=== PATIENT | male | born 1965 | race Caucasian/White ===

== ENCOUNTER 2020-09-27 12:03 | Inpatient (IN) | payer MEDICAID, OTHER ==
[~2020-09-27] VITALS: Ht 182.9 cm; Wt 127.5 kg
[2020-09-27 13:35] LABS: Urine Bacteria NONE SEEN /hpf (None Seen); Urine Blood 2+ /uL (Negative); Urine Specific Gravity 1.018 (1.001-1.035); Urine WBC 5 /hpf (0 - 3)
[2020-09-27 15:15] LABS: Basophils # (auto) 0.1 10 ^3/uL (0-0.2); Basophils % (auto) 1.1 % (0.0-2.0); Eosinophils # (auto) 0.2 10 ^3/uL (0-0.8); Eosinophils % (auto) 3.1 % (0.0-7.0); Hemoglobin 14.6 g/dL (13.5-17.5); Lymphocytes # (auto) 1.6 10 ^3/uL (0.4-5.4); Mean Corpuscular Hemoglobin 30.5 pg (28.0-32.0); Mean Corpuscular Hgb Conc. 36.6 g/dL (32.0-36.0); Mean Corpuscular Volume 83.4 fL (80.0-100.0); Monocytes # (auto) 0.8 10 ^3/uL (0-1.3); Monocytes % (auto) 10.5 % (0.0-12.0); Neutrophils # (auto) 4.9 10 ^3/uL (1.6-8.6); Neutrophils % (auto) 64.3 % (37.0-80.0); Nucleated Red Blood Cells % 0.1 %; Platelet Count (auto) 172 10^3/uL (140-450); Red Cell Distribution Width 14.6 % (11.8-14.3); White Blood Cell 7.5 10^3/uL (4.4-10.8)
[2020-09-27 15:28] LABS: Albumin 3.6 g/dL (3.4-5.0); BUN/Creatinine Ratio 12.1; Calcium 8.8 mg/dL (8.5-10.1); Magnesium 1.8 mg/dL (1.6-2.6); Potassium 4.2 mmol/L (3.5-5.1)
[2020-09-27 15:32] LABS: Bilirubin, Total 0.8 mg/dL (0.2-1.0); Total Protein 7.1 g/dL (6.4-8.2)
[2020-09-27] MEDS ORDERED: ONDANSETRON HCL 4 MG/2 ML VIAL IV ONE (16:45)
[2020-09-27] MEDS ORDERED: MORPHINE SULFATE 4 MG/ML SYR/VIAL IV ONE (16:45)
[2020-09-27] MEDS ORDERED: SODIUM CHLORIDE 0.9% 1,000 ML IV ONE (16:45)
[2020-09-27 17:05] LABS: INR 1.07 (0.9-1.15); Partial Thromboplastin Time 26.9 sec (23.0-31.2)
[2020-09-27] MEDS ORDERED: ALOG1TAB2 PO (17:23)
[2020-09-27] MEDS ORDERED: HYDR-4902 PO (17:23)
[2020-09-27] MEDS ORDERED: OMEP20TA PO (17:23)
[2020-09-27] MEDS ORDERED: CARV12.544 PO (17:23)
[2020-09-27] MEDS ORDERED: ATOR10TA PO (17:23)
[2020-09-27] MEDS ORDERED: DEXTROSE (50%) 50ML SYRG IV PRN (18:00)
[2020-09-27] MEDS ORDERED: ACETAMINOPHEN 325 MG TAB PO PRN (18:00)
[2020-09-27] MEDS ORDERED: ONDANSETRON HCL 4 MG/2 ML VIAL IV PRN (18:00)
[2020-09-27] MEDS ORDERED: HYDROcodone-ACET 5/325MG TAB PO PRN (18:00)
[2020-09-27] MEDS ORDERED: NITROGLYCERIN 0.4 MG SL TAB SL PRN (18:00)
[2020-09-27] MEDS ORDERED: MORPHINE SULF INJ 2 MG/ML SYRINGE 1ML IV PRN ×2 (18:00)
[2020-09-27] MEDS ORDERED: cefTRIAXone 1GM/50ML D5W 50 ML IV ONE (18:15)
[2020-09-27] MEDS: SOD CHL 0.45% 1,000 ML IV SCH (20:54)
[2020-09-27] MEDS: CARVEDILOL 12.5 MG TAB PO SCH (21:24)
[2020-09-27] MEDS: InsuLIN REG 1unit/0.01ml Soln (100units/ml) SC SCH (21:24)
[2020-09-27] MEDS: ATORVASTATIN 20 MG TAB PO SCH (21:24)
[2020-09-27] MEDS: ACCU-CHEK COMFORT CURVE STRIP VI SCH (21:24)
[2020-09-27 22:00] VITALS: BP 156/82
[2020-09-28 05:00] VITALS: BP 148/91
[2020-09-28] MEDS: SOD CHL 0.45% 1,000 ML IV SCH ×3 (05:15→21:41)
[2020-09-28 05:40] LABS: Basophils # (auto) 0.1 10 ^3/uL (0-0.2); Eosinophils # (auto) 0.2 10 ^3/uL (0-0.8); Hemoglobin 13.6 g/dL (13.5-17.5); Monocytes # (auto) 0.8 10 ^3/uL (0-1.3); Red Cell Distribution Width 14.6 % (11.8-14.3)
[2020-09-28 05:42] LABS: Eosinophils % (auto) 3.5 % (0.0-7.0); Lymphocytes # (auto) 1.8 10 ^3/uL (0.4-5.4); Lymphocytes % (auto) 25.9 % (10.0-50.0); Mean Corpuscular Hemoglobin 30.2 pg (28.0-32.0); Mean Corpuscular Hgb Conc. 36.8 g/dL (32.0-36.0); Monocytes % (auto) 12.1 % (0.0-12.0); Neutrophils % (auto) 57.5 % (37.0-80.0); Nucleated Red Blood Cells % 0.3 %; Platelet Count (auto) 153 10^3/uL (140-450); Red Blood Cells 4.51 10^6/uL (4.5-5.90)
[2020-09-28 06:07] LABS: Calcium 8.2 mg/dL (8.5-10.1); Magnesium 1.8 mg/dL (1.6-2.6); Potassium 3.8 mmol/L (3.5-5.1)
[2020-09-28 06:09] LABS: BUN/Creatinine Ratio 15.3
[2020-09-28] MEDS: ACCU-CHEK COMFORT CURVE STRIP VI SCH ×4 (06:22→21:42)
[2020-09-28] MEDS: InsuLIN REG 1unit/0.01ml Soln (100units/ml) SC SCH ×4 (06:23→22:03)
[2020-09-28 08:39] VITALS: BP 126/72
[2020-09-28] MEDS: cefTRIAXone 1GM/50ML D5W 50 ML IV SCH (10:00)
[2020-09-28] MEDS: PANTOPRAZOLE 40 MG TAB PO SCH (10:00)
[2020-09-28] MEDS: CARVEDILOL 12.5 MG TAB PO SCH ×2 (10:00→21:41)
[2020-09-28 13:00] VITALS: BP 151/87
[2020-09-28] MEDS ORDERED: ceFAZolin 1GM/50ML 100 ML IV ONE (13:01)
[2020-09-28] MEDS ORDERED: fentaNYL CITRATE 100 MCG/2 ML VL ONE (13:35)
[2020-09-28] MEDS ORDERED: MIDAZOLAM HCL 1MG/1ML-2 ML VIAL ONE (13:35)
[2020-09-28] MEDS ORDERED: LIDOCAINE 2% (LOCAL ANESTH.) PF 5ml SDV ONE (13:35)
[2020-09-28] MEDS ORDERED: MEPERIDINE HCL (50 MG/ML) 1 ML VIAL ONE (13:35)
[2020-09-28] MEDS ORDERED: ONDANSETRON HCL 4 MG/2 ML VIAL ONE (13:35)
[2020-09-28] MEDS ORDERED: GLYCOPYRROLATE 0.2 MG/ML 1ML VIAL ONE (13:35)
[2020-09-28] MEDS ORDERED: DexAMETHasone SOD PHOS 10MG/1ML VIAL INJ ONE (13:35)
[2020-09-28] MEDS ORDERED: PROPOFOL 10 MG/ML 20 ML IV ONE (13:35)
[2020-09-28] MEDS ORDERED: IOHEXOL 300 MG/ML 100ML BOTTLE IJ ONE (13:43)
[2020-09-28] MEDS ORDERED: ROCURONIUM 10MG/ML 10ML VIAL IV ONE (13:51)
[2020-09-28] MEDS ORDERED: ONDANSETRON HCL 4 MG/2 ML VIAL IV PRN (16:00)
[2020-09-28] MEDS ORDERED: ACCU-CHEK COMFORT CURVE STRIP VI ONE (16:00)
[2020-09-28] MEDS ORDERED: HYDROmorphone HCL 2 MG/ML VL IV PRN (16:00)
[2020-09-28 17:08] VITALS: BP 153/105
[2020-09-28 20:00] VITALS: BP 167/88
[2020-09-28] MEDS: ATORVASTATIN 20 MG TAB PO SCH (21:41)
[2020-09-28 23:19] VITALS: BP 167/88
[2020-09-29 05:52] VITALS: BP 142/81
[2020-09-29] MEDS: ACCU-CHEK COMFORT CURVE STRIP VI SCH ×2 (06:14→11:30)
[2020-09-29] MEDS: SOD CHL 0.45% 1,000 ML IV SCH ×2 (06:14→11:12)
[2020-09-29] MEDS: InsuLIN REG 1unit/0.01ml Soln (100units/ml) SC SCH ×2 (06:23→12:01)
[2020-09-29 08:48] VITALS: BP 144/79
[2020-09-29] MEDS: PANTOPRAZOLE 40 MG TAB PO SCH (09:54)
[2020-09-29] MEDS: CARVEDILOL 12.5 MG TAB PO SCH (09:54)
[2020-09-29] MEDS: cefTRIAXone 1GM/50ML D5W 50 ML IV SCH (09:54)
[2020-09-29 11:41] LABS: BUN/Creatinine Ratio 14.1; Potassium 4.2 mmol/L (3.5-5.1)
[2020-09-29 12:31] VITALS: BP 140/83
[2020-09-29 15:47] VITALS: BP 132/80
== END 2020-09-29 14:20 | disposition home or self-care (01) | DRG 465 ==
LOC: ER 12:03 → TELE 17:56 → TELE-CENTR 20:32
PROVIDERS: ADMIT Internal Medicine; ATTEND Internal Medicine
PROC: 0TJB8ZZ Inspection of Bladder, Via Natural or Artificial Opening Endoscopic (ICD-10-PCS; principal; 2020-09-28 13:51)
PROC: 0TF4XZZ Fragmentation in Left Kidney Pelvis, External Approach (ICD-10-PCS; 2020-09-28 13:51)
DX: N20.2 Calculus of kidney with calculus of ureter (principal); E11.22 Type 2 diabetes mellitus with diabetic chronic kidney disease; N17.9 Acute kidney failure, unspecified; N18.30 Chronic kidney disease, stage 3 unspecified; E11.65 Type 2 diabetes mellitus with hyperglycemia; I12.9 Hypertensive chronic kidney disease with stage 1 through stage 4 chronic kidney disease, or unspecified chronic kidney disease; Z20.822 Contact with and (suspected) exposure to COVID-19; E66.9 Obesity, unspecified; E78.5 Hyperlipidemia, unspecified; Z85.528 Personal history of other malignant neoplasm of kidney; Z87.442 Personal history of urinary calculi; Z87.891 Personal history of nicotine dependence; Z90.5 Acquired absence of kidney; Z79.84 Long term (current) use of oral hypoglycemic drugs; Z79.899 Other long term (current) drug therapy; Z68.37 Body mass index [BMI] 37.0-37.9, adult
CPT/HCPCS: 36415; 71046; 74176; 76775; 80048; 80053; 81001; 82962; 83735; 84443; 84484; 85025; 85610; 85730; 87426; 93005; 96361; 96365; G0378; J0690; J0696; J1100; J1815; J2001; J2250; J2405; J2704

== ENCOUNTER 2020-10-31 18:06 | Emergency (ER) | payer MEDICAID ==
[~2020-10-31] VITALS: Ht 172.7 cm; Wt 117.9 kg
[~2020-10-31 18:06] MED LIST: ALOG1TAB2 PO; ATOR10TA PO; CARV12.544 PO; HYDR-4902 PO; OMEP20TA PO
[2020-10-31 19:24] LABS: Basophils # (auto) 0.1 10 ^3/uL (0-0.2); Basophils % (auto) 0.9 % (0.0-2.0); Eosinophils # (auto) 0.3 10 ^3/uL (0-0.8); Eosinophils % (auto) 2.5 % (0.0-7.0); Hematocrit 39.1 % (41.0-53.0); Hemoglobin 13.8 g/dL (13.5-17.5); Lymphocytes % (auto) 19.2 % (10.0-50.0); Mean Corpuscular Hemoglobin 29.6 pg (28.0-32.0); Mean Corpuscular Hgb Conc. 35.4 g/dL (32.0-36.0); Mean Corpuscular Volume 83.7 fL (80.0-100.0); Monocytes % (auto) 9.6 % (0.0-12.0); Neutrophils # (auto) 7.1 10 ^3/uL (1.6-8.6); Neutrophils % (auto) 67.8 % (37.0-80.0); Red Blood Cells 4.67 10^6/uL (4.5-5.90); Red Cell Distribution Width 13.9 % (11.8-14.3); White Blood Cell 10.5 10^3/uL (4.4-10.8)
[2020-10-31 19:55] LABS: Albumin 3.5 g/dL (3.4-5.0); Calcium 8.6 mg/dL (8.5-10.1); Magnesium 1.9 mg/dL (1.6-2.6); Potassium 3.9 mmol/L (3.5-5.1)
[2020-10-31 20:03] LABS: BUN/Creatinine Ratio 8.8; Bilirubin, Total 0.8 mg/dL (0.2-1.0)
[2020-10-31 22:00] VITALS: BP 175/94
== END 2020-10-31 23:43 | disposition home or self-care (01) ==
LOC: ER 18:07
DX: R07.89 Other chest pain (principal); E11.9 Type 2 diabetes mellitus without complications; I10 Essential (primary) hypertension
CPT/HCPCS: 36415; 71045; 80053; 83735; 84484; 85025; 93005

== ENCOUNTER → 2021-03-13 | Emergency (ER) | payer MEDICAID ==
[~2021-03-13] VITALS: Ht 172.7 cm; Wt 117.9 kg
[2021-03-13 08:50] VITALS: BP 174/95
== END | disposition left against medical advice (07) ==
LOC: ER 08:28
DX: M54.2 Cervicalgia (principal); Z53.21 Procedure and treatment not carried out due to patient leaving prior to being seen by health care provider
CPT/HCPCS: 72040

== ENCOUNTER 2021-11-01 06:31 | Emergency (ER) | payer MEDICAID ==
[~2021-11-01] VITALS: Ht 172.7 cm; Wt 120.2 kg
[2021-11-01 06:31] VITALS: BP 125/95
[2021-11-01] MEDS ORDERED: IPRATROPIUM BROM 0.5 MG/2.5ML INH SOL NEB ONE (07:30)
[2021-11-01] MEDS ORDERED: ALBUTEROL SULF 2.5 MG/0.5ML(0.5%) NEB SOLN NEB ONE (07:30)
[2021-11-01] MEDS ORDERED: LEVO500T31 PO (08:25)
[2021-11-01] MEDS ORDERED: BENZ100C19 PO (08:25)
== END 2021-11-01 08:32 | disposition home or self-care (01) ==
LOC: ER 06:31
DX: J20.9 Acute bronchitis, unspecified (principal); E11.9 Type 2 diabetes mellitus without complications; I10 Essential (primary) hypertension
CPT/HCPCS: 71046; 94640; 99283; J7644

== ENCOUNTER 2021-11-13 21:08 | Emergency (ER) | payer MEDICAID ==
[~2021-11-13] VITALS: Ht 172.7 cm; Wt 118.2 kg
[~2021-11-13 21:08] MED LIST changes: +BENZ100C19 PO; +LEVO500T31 PO
[2021-11-13 22:28] LABS: Basophils # (auto) 0.1 10 ^3/uL (0-0.2); Basophils % (auto) 1.1 % (0.0-2.0); Eosinophils # (auto) 0.2 10 ^3/uL (0-0.8); Eosinophils % (auto) 2.9 % (0.0-7.0); Hematocrit 42.4 % (41.0-53.0); Hemoglobin 14.5 g/dL (13.5-17.5); Lymphocytes # (auto) 1.1 10 ^3/uL (0.4-5.4); Lymphocytes % (auto) 17.7 % (10.0-50.0); Mean Corpuscular Hemoglobin 28.2 pg (28.0-32.0); Mean Corpuscular Hgb Conc. 34.1 g/dL (32.0-36.0); Mean Corpuscular Volume 82.7 fL (80.0-100.0); Neutrophils # (auto) 3.8 10 ^3/uL (1.6-8.6); Neutrophils % (auto) 62.3 % (37.0-80.0); Nucleated Red Blood Cells % 0.1 %; Red Blood Cells 5.13 10^6/uL (4.5-5.90); Red Cell Distribution Width 14.3 % (11.8-14.3)
[2021-11-13 22:49] LABS: Albumin 3.5 g/dL (3.4-5.0); Calcium 8.9 mg/dL (8.5-10.1); Potassium 3.5 mmol/L (3.5-5.1)
[2021-11-13 22:51] LABS: BUN/Creatinine Ratio 12.4
[2021-11-13 23:02] LABS: Bilirubin, Total 0.8 mg/dL (0.2-1.0); Total Protein 7.1 g/dL (6.4-8.2)
[2021-11-14] MEDS ORDERED: AZIT250T9 PO (03:48)
[2021-11-14] MEDS ORDERED: PRED20TA2 PO (03:48)
[2021-11-14] MEDS ORDERED: ALBUAER3 IN (03:48)
[2021-11-14 04:10] VITALS: BP 145/79
== END 2021-11-14 04:15 | disposition home or self-care (01) ==
LOC: ER 21:08
DX: J20.9 Acute bronchitis, unspecified (principal); J42 Unspecified chronic bronchitis; I10 Essential (primary) hypertension; E11.9 Type 2 diabetes mellitus without complications; Z79.899 Other long term (current) drug therapy; Z79.2 Long term (current) use of antibiotics; Z20.822 Contact with and (suspected) exposure to COVID-19
CPT/HCPCS: 36415; 71045; 80053; 83880; 84484; 85025

== ENCOUNTER 2021-12-01 09:58 | Inpatient (IN) | payer MEDICAID ==
[~2021-12-01] VITALS: Ht 172.7 cm; Wt 131.5 kg
[~2021-12-01 09:58] MED LIST changes: +ALBUAER3 IN; +AZIT250T9 PO; +PRED20TA2 PO
[2021-12-01 11:50] LABS: Basophils # (auto) 0.1 10 ^3/uL (0-0.2); Basophils % (auto) 0.7 % (0.0-2.0); Eosinophils # (auto) 0.1 10 ^3/uL (0-0.8); Hematocrit 46.1 % (41.0-53.0); Hemoglobin 15.2 g/dL (13.5-17.5); Lymphocytes # (auto) 0.6 10 ^3/uL (0.4-5.4); Lymphocytes % (auto) 7.3 % (10.0-50.0); Mean Corpuscular Hemoglobin 27.7 pg (28.0-32.0); Monocytes # (auto) 0.6 10 ^3/uL (0-1.3); Monocytes % (auto) 8.4 % (0.0-12.0); Neutrophils # (auto) 6.3 10 ^3/uL (1.6-8.6); Neutrophils % (auto) 82.6 % (37.0-80.0); Nucleated Red Blood Cells % 0.1 %; Red Blood Cells 5.49 10^6/uL (4.5-5.90); Red Cell Distribution Width 14.1 % (11.8-14.3); White Blood Cell 7.7 10^3/uL (4.4-10.8)
[2021-12-01] MEDS ORDERED: LACTATED RINGER'S 1,000 ML IV ONE (12:00)
[2021-12-01 12:06] LABS: Partial Thromboplastin Time 26.5 sec (24.6-33.4)
[2021-12-01 12:11] LABS: Albumin 3.4 g/dL (3.4-5.0); Calcium 8.6 mg/dL (8.5-10.1); Potassium 4.2 mmol/L (3.5-5.1)
[2021-12-01 12:15] LABS: BUN/Creatinine Ratio 5.7; Bilirubin, Total 5.3 mg/dL (0.2-1.0); Total Protein 6.8 g/dL (6.4-8.2)
[2021-12-01] MEDS ORDERED: FAMOTIDINE (10MG/ML) 2ML VL IV ONE (12:15)
[2021-12-01] MEDS ORDERED: OMNIPAQUE ORAL SOLN 500ml 12mg/ml PO ONE (12:55)
[2021-12-01] MEDS ORDERED: ONDANSETRON HCL 4 MG/2 ML VIAL IV SCH (14:00)
[2021-12-01] MEDS ORDERED: MORPHINE SULFATE 4 MG/ML SYR/VIAL IV SCH (14:00)
[2021-12-01] MEDS: ONDANSETRON HCL 4 MG/2 ML VIAL IV PRN ×2 (19:22→22:55)
[2021-12-01] MEDS: MORPHINE SULFATE 4 MG/ML SYR/VIAL IV PRN ×2 (19:23→22:55)
[2021-12-01] MEDS ORDERED: TEMAZEPAM 15 MG CAP PO PRN (22:45)
[2021-12-01] MEDS ORDERED: ONDANSETRON HCL 4 MG/2 ML VIAL IV PRN (22:45)
[2021-12-01] MEDS ORDERED: DOCUSATE SOD 100 MG CAP PO PRN (22:45)
[2021-12-01] MEDS ORDERED: DEXTROSE (50%) 50ML SYRG IV PRN (22:45)
[2021-12-01] MEDS ORDERED: IBUPROFEN 600 MG TAB PO PRN (22:45)
[2021-12-01] MEDS ORDERED: NITROGLYCERIN 0.4 MG SL TAB SL PRN (22:45)
[2021-12-01] MEDS ORDERED: MORPHINE SULFATE INJ 2 MG/ml SYRG IV PRN (22:45)
[2021-12-01] MEDS: SODIUM CHLORIDE 0.9% 1,000 ML IV SCH (23:13)
[2021-12-01] MEDS: hydrALAZINE HCL 20 MG/ML VL IV PRN (23:13)
[2021-12-02] MEDS: ACCU-CHEK COMFORT CURVE STRIP VI SCH ×5 (01:50→23:23)
[2021-12-02] MEDS: InsuLIN REG 1unit/0.01ml Soln (100units/ml) SC SCH ×5 (01:58→23:23)
[2021-12-02] MEDS: hydrALAZINE HCL 20 MG/ML VL IV PRN ×2 (04:26→21:34)
[2021-12-02 06:39] LABS: Basophils # (auto) 0 10 ^3/uL (0-0.2); Basophils % (auto) 0.4 % (0.0-2.0); Eosinophils # (auto) 0.1 10 ^3/uL (0-0.8); Eosinophils % (auto) 0.8 % (0.0-7.0); Hematocrit 43.3 % (41.0-53.0); Hemoglobin 15.2 g/dL (13.5-17.5); Lymphocytes # (auto) 0.5 10 ^3/uL (0.4-5.4); Lymphocytes % (auto) 5.2 % (10.0-50.0); Mean Corpuscular Hemoglobin 29.1 pg (28.0-32.0); Mean Corpuscular Hgb Conc. 35.1 g/dL (32.0-36.0); Mean Corpuscular Volume 83.1 fL (80.0-100.0); Monocytes # (auto) 0.7 10 ^3/uL (0-1.3); Monocytes % (auto) 6.9 % (0.0-12.0); Neutrophils % (auto) 86.7 % (37.0-80.0); Red Blood Cells 5.21 10^6/uL (4.5-5.90); Red Cell Distribution Width 14.2 % (11.8-14.3); White Blood Cell 10.4 10^3/uL (4.4-10.8)
[2021-12-02 06:51] LABS: Albumin 3.1 g/dL (3.4-5.0); Calcium 8.6 mg/dL (8.5-10.1); Potassium 3.9 mmol/L (3.5-5.1)
[2021-12-02 07:02] LABS: BUN/Creatinine Ratio 9.1; Bilirubin, Total 4.6 mg/dL (0.2-1.0); Total Protein 6.4 g/dL (6.4-8.2)
[2021-12-02] MEDS: SODIUM CHLORIDE 0.9% 1,000 ML IV SCH ×2 (10:14→20:45)
[2021-12-02] MEDS: FAMOTIDINE (10MG/ML) 2ML VL IV SCH ×2 (10:19→21:33)
[2021-12-02] MEDS: CARVEDILOL 12.5 MG TAB PO SCH ×2 (10:21→21:33)
[2021-12-02] MEDS: amLODIPine BESYLATE 5 MG TAB PO SCH (10:26)
[2021-12-02] MEDS: ENOXAPARIN SOD 40 MG/0.4 ML SYRINGE SC SCH (10:27)
[2021-12-02] MEDS ORDERED: SODIUM CHLORIDE 0.9% 1,000 ML IV SCH (12:30)
[2021-12-02] MEDS ORDERED: LACTATED RINGER'S 1,000 ML IV SCH (12:30)
[2021-12-02] MEDS: MORPHINE SULFATE INJ 2 MG/ml SYRG IV PRN ×2 (12:43→21:35)
[2021-12-02 13:00] VITALS: BP 161/87
[2021-12-02 16:49] VITALS: BP 154/85
[2021-12-02 21:52] VITALS: BP 160/108
[2021-12-03] MEDS: SODIUM CHLORIDE 0.9% 1,000 ML IV SCH ×3 (03:15→20:00)
[2021-12-03 04:54] VITALS: BP 116/79
[2021-12-03 05:44] LABS: Basophils # (auto) 0 10 ^3/uL (0-0.2); Basophils % (auto) 0.3 % (0.0-2.0); Eosinophils # (auto) 0.1 10 ^3/uL (0-0.8); Eosinophils % (auto) 0.7 % (0.0-7.0); Hematocrit 39.9 % (41.0-53.0); Hemoglobin 13.7 g/dL (13.5-17.5); Lymphocytes # (auto) 0.8 10 ^3/uL (0.4-5.4); Lymphocytes % (auto) 7.4 % (10.0-50.0); Mean Corpuscular Hemoglobin 28.8 pg (28.0-32.0); Mean Corpuscular Hgb Conc. 34.4 g/dL (32.0-36.0); Mean Corpuscular Volume 83.7 fL (80.0-100.0); Monocytes # (auto) 1.1 10 ^3/uL (0-1.3); Monocytes % (auto) 10.4 % (0.0-12.0); Neutrophils # (auto) 8.3 10 ^3/uL (1.6-8.6); Neutrophils % (auto) 81.2 % (37.0-80.0); Red Blood Cells 4.76 10^6/uL (4.5-5.90); Red Cell Distribution Width 14.3 % (11.8-14.3); White Blood Cell 10.2 10^3/uL (4.4-10.8)
[2021-12-03 05:50] LABS: Potassium 3.9 mmol/L (3.5-5.1)
[2021-12-03 05:59] LABS: Albumin 2.8 g/dL (3.4-5.0); Bilirubin, Total 2.5 mg/dL (0.2-1.0); Calcium 8.4 mg/dL (8.5-10.1); Total Protein 6.2 g/dL (6.4-8.2)
[2021-12-03] MEDS: ACCU-CHEK COMFORT CURVE STRIP VI SCH ×4 (06:00→23:58)
[2021-12-03] MEDS: InsuLIN REG 1unit/0.01ml Soln (100units/ml) SC SCH ×3 (06:41→17:49)
[2021-12-03 09:00] VITALS: BP 128/71
[2021-12-03] MEDS: FAMOTIDINE (10MG/ML) 2ML VL IV SCH ×2 (09:46→21:19)
[2021-12-03] MEDS: ENOXAPARIN SOD 40 MG/0.4 ML SYRINGE SC SCH (09:48)
[2021-12-03] MEDS: MORPHINE SULFATE INJ 2 MG/ml SYRG IV PRN ×3 (09:48→21:29)
[2021-12-03] MEDS: CARVEDILOL 12.5 MG TAB PO SCH ×2 (09:49→21:24)
[2021-12-03] MEDS: amLODIPine BESYLATE 5 MG TAB PO SCH (09:50)
[2021-12-03] MEDS: hydrALAZINE HCL 20 MG/ML VL IV PRN (12:50)
[2021-12-03 13:00] VITALS: BP 169/89
[2021-12-03 17:00] VITALS: BP 156/77
[2021-12-03 22:00] VITALS: BP 129/54
[2021-12-04] MEDS: InsuLIN REG 1unit/0.01ml Soln (100units/ml) SC SCH ×2 (01:04→06:19)
[2021-12-04] MEDS: SODIUM CHLORIDE 0.9% 1,000 ML IV SCH ×2 (03:15→11:07)
[2021-12-04 05:00] VITALS: BP 137/63
[2021-12-04] MEDS: ACCU-CHEK COMFORT CURVE STRIP VI SCH (05:45)
[2021-12-04 05:58] LABS: Albumin 2.6 g/dL (3.4-5.0); Potassium 3.5 mmol/L (3.5-5.1)
[2021-12-04 06:03] LABS: BUN/Creatinine Ratio 11.2; Total Protein 6.1 g/dL (6.4-8.2)
[2021-12-04 09:00] VITALS: BP 105/60
[2021-12-04] MEDS: FAMOTIDINE (10MG/ML) 2ML VL IV SCH (10:58)
[2021-12-04] MEDS: ENOXAPARIN SOD 40 MG/0.4 ML SYRINGE SC SCH (11:01)
[2021-12-04] MEDS: MORPHINE SULFATE INJ 2 MG/ml SYRG IV PRN (11:01)
[2021-12-04] MEDS: amLODIPine BESYLATE 5 MG TAB PO SCH (11:02)
[2021-12-04] MEDS: CARVEDILOL 12.5 MG TAB PO SCH (11:02)
[2021-12-04] MEDS: hydrALAZINE HCL 20 MG/ML VL IV PRN (11:05)
[2021-12-04] MEDS ORDERED: InsuLIN REG 1unit/0.01ml Soln (100units/ml) SC SCH (11:30)
[2021-12-04] MEDS ORDERED: ACCU-CHEK COMFORT CURVE STRIP VI SCH (11:30)
[2021-12-04 13:00] VITALS: BP 126/81
[2021-12-04] MEDS ORDERED: SUCR1SUS10 PO (14:51)
[2021-12-04] MEDS ORDERED: OMEP20TA PO (14:51)
[2021-12-04 15:48] VITALS: BP 126/81
== END 2021-12-04 17:10 | disposition home or self-care (01) | DRG 282 ==
LOC: ER 09:58 → OVERFLOW 22:32 → EAST 12-02 11:05
PROVIDERS: ADMIT Nurse Practitioner Family; ATTEND Hospitalist
DX: K85.10 Biliary acute pancreatitis without necrosis or infection (principal); N17.9 Acute kidney failure, unspecified; E87.1 Hypo-osmolality and hyponatremia; I10 Essential (primary) hypertension; Z20.822 Contact with and (suspected) exposure to COVID-19; E78.5 Hyperlipidemia, unspecified; Z85.528 Personal history of other malignant neoplasm of kidney; Z90.5 Acquired absence of kidney; E11.65 Type 2 diabetes mellitus with hyperglycemia; Z79.84 Long term (current) use of oral hypoglycemic drugs
CPT/HCPCS: 36415; 71045; 74018; 74176; 74181; 80053; 80061; 82962; 83036; 83605; 83690; 83735; 84484; 85025; 85610; 85730; 93005; 96361; 96374; 96375; G0378; J1815; J2405; J3490

== ENCOUNTER 2022-02-27 08:43 | Emergency (ER) | payer MEDICAID ==
[~2022-02-27] VITALS: Ht 172.7 cm; Wt 126.0 kg
[~2022-02-27 08:43] MED LIST changes: -AZIT250T9 PO; -LEVO500T31 PO; -PRED20TA2 PO; +SUCR1SUS10 PO
[2022-02-27] MEDS ORDERED: HYDROcodone-ACET 5/325MG TAB PO ONE (10:15)
[2022-02-27 10:20] VITALS: BP 170/107
[2022-02-27] MEDS ORDERED: CYCL-837 PO (11:07)
[2022-02-27] MEDS ORDERED: IBUP800T27 PO (11:07)
== END 2022-02-27 11:22 | disposition home or self-care (01) ==
LOC: ER 08:43
DX: S46.911A Strain of unspecified muscle, fascia and tendon at shoulder and upper arm level, right arm, initial encounter (principal); E11.9 Type 2 diabetes mellitus without complications; E78.5 Hyperlipidemia, unspecified; I10 Essential (primary) hypertension; W01.0XXA Fall on same level from slipping, tripping and stumbling without subsequent striking against object, initial encounter; Y93.89 Activity, other specified; Y92.89 Other specified places as the place of occurrence of the external cause; Y99.8 Other external cause status
CPT/HCPCS: 73030

== ENCOUNTER 2022-04-30 07:25 | Emergency (ER) | payer MEDICAID ==
[~2022-04-30] VITALS: Ht 172.7 cm; Wt 130.0 kg
[~2022-04-30 07:25] MED LIST changes: +CYCL-837 PO; +IBUP800T27 PO
[2022-04-30 07:49] VITALS: BP 167/92
[2022-04-30] MEDS ORDERED: LORA-664 PO (08:33)
[2022-04-30] MEDS ORDERED: BENZ100C19 PO (08:33)
[2022-04-30] MEDS ORDERED: ACET1CAP14 PO (08:33)
== END 2022-04-30 08:46 | disposition home or self-care (01) ==
LOC: ER 07:25
DX: J06.9 Acute upper respiratory infection, unspecified (principal); B97.89 Other viral agents as the cause of diseases classified elsewhere; E11.9 Type 2 diabetes mellitus without complications; E78.5 Hyperlipidemia, unspecified; I10 Essential (primary) hypertension; Z79.899 Other long term (current) drug therapy; Z20.822 Contact with and (suspected) exposure to COVID-19
CPT/HCPCS: 36415; 71046; 82962; 87426; 87804

== ENCOUNTER 2022-05-15 10:35 | Emergency (ER) | payer MEDICAID ==
[~2022-05-15] VITALS: Ht 172.7 cm; Wt 120.5 kg
[~2022-05-15 10:35] MED LIST changes: +ACET1CAP14 PO; +LORA-664 PO
[2022-05-15 11:11] LABS: Basophils # (auto) 0.1 10 ^3/uL (0-0.2); Basophils % (auto) 1.6 % (0.0-2.0); Eosinophils # (auto) 0.3 10 ^3/uL (0-0.8); Eosinophils % (auto) 4.4 % (0.0-7.0); Hematocrit 42.9 % (41.0-53.0); Hemoglobin 15.2 g/dL (13.5-17.5); Lymphocytes # (auto) 1.6 10 ^3/uL (0.4-5.4); Lymphocytes % (auto) 21.6 % (10.0-50.0); Mean Corpuscular Hgb Conc. 35.3 g/dL (32.0-36.0); Mean Corpuscular Volume 82.1 fL (80.0-100.0); Monocytes # (auto) 0.7 10 ^3/uL (0-1.3); Monocytes % (auto) 10.2 % (0.0-12.0); Neutrophils # (auto) 4.6 10 ^3/uL (1.6-8.6); Neutrophils % (auto) 62.2 % (37.0-80.0); Nucleated Red Blood Cells % 0.8 %; Red Blood Cells 5.23 10^6/uL (4.5-5.90); Red Cell Distribution Width 14.3 % (11.8-14.3); White Blood Cell 7.3 10^3/uL (4.4-10.8)
[2022-05-15 11:31] LABS: Albumin 3.7 g/dL (3.4-5.0); Calcium 8.9 mg/dL (8.5-10.1); Potassium 4.5 mmol/L (3.5-5.1)
[2022-05-15 11:33] LABS: BUN/Creatinine Ratio 12.4
[2022-05-15 11:35] LABS: Bilirubin, Total 0.9 mg/dL (0.2-1.0); Total Protein 6.8 g/dL (6.4-8.2)
[2022-05-15] MEDS ORDERED: AZIT250T9 PO (12:25)
[2022-05-15] MEDS ORDERED: CLON0.1T PO (12:25)
[2022-05-15 13:14] VITALS: BP 160/105
== END 2022-05-15 13:16 | disposition home or self-care (01) ==
LOC: ER 10:35
DX: J20.9 Acute bronchitis, unspecified (principal); E78.5 Hyperlipidemia, unspecified; I10 Essential (primary) hypertension; E11.65 Type 2 diabetes mellitus with hyperglycemia; T46.4X5A Adverse effect of angiotensin-converting-enzyme inhibitors, initial encounter; Y92.89 Other specified places as the place of occurrence of the external cause
CPT/HCPCS: 36415; 71045; 80053; 84484; 85025; 93005

== ENCOUNTER 2022-07-17 08:49 | Emergency (ER) | payer MEDICAID ==
[~2022-07-17] VITALS: Ht 172.7 cm; Wt 131.2 kg
[~2022-07-17 08:49] MED LIST changes: +AZIT250T9 PO; +CLON0.1T PO
[2022-07-17 09:18] VITALS: BP 160/100
[2022-07-17 09:42] LABS: Urine Bacteria FEW /hpf (None Seen); Urine Blood Negative /uL (Negative); Urine Specific Gravity 1.005 (1.001-1.035); Urine WBC <1 /hpf (0 - 3)
[2022-07-17 10:50] LABS: Albumin 3.3 g/dL (3.4-5.0); Calcium 8.9 mg/dL (8.5-10.1); Potassium 4.3 mmol/L (3.5-5.1)
[2022-07-17 10:54] LABS: BUN/Creatinine Ratio 10.5 (10.0-20.0); Bilirubin, Total 0.7 mg/dL (0.2-1.0); Total Protein 6.6 g/dL (6.4-8.2)
[2022-07-17] MEDS ORDERED: TRAM-297 PO ×2 (11:29)
[2022-07-17] MEDS ORDERED: TRIA0.02 TOP ×2 (11:29)
[2022-07-17] MEDS ORDERED: ACYC-166 PO ×2 (11:29)
[2022-07-17 11:47] LABS: Hematocrit 39.1 % (41.0-53.0); Mean Corpuscular Hemoglobin 29.1 pg (28.0-32.0); Mean Corpuscular Hgb Conc. 35.9 g/dL (32.0-36.0); Mean Corpuscular Volume 81.1 fL (80.0-100.0); Red Blood Cells 4.82 10^6/uL (4.5-5.90); Red Cell Distribution Width 14.1 % (11.8-14.3); White Blood Cell 7.2 10^3/uL (4.4-10.8)
[2022-07-17 12:12] LABS: Basophils % (manual) 0 (0.0-2.0); Metamyelocytes % 0; Myelocytes % 0
[2022-07-17 12:13] LABS: Blast Cells 0; Promyelocytes % 0; Reactive Lymphocytes 0
[2022-07-17] MEDS ORDERED: ACET-1080 PO (12:45)
[2022-07-17] MEDS ORDERED: TAM04C PO (12:45)
[2022-07-17 13:43] LABS: Band Neutrophils % (manual) 11; Eosinophils % (manual) 3 (0-7); Lymphocytes % (manual) 33 (10.0-50.0); Monocytes % (manual) 2 (0-12)
== END 2022-07-17 12:50 | disposition home or self-care (01) ==
LOC: ER 08:49
DX: K80.20 Calculus of gallbladder without cholecystitis without obstruction (principal); K76.0 Fatty (change of) liver, not elsewhere classified; N40.0 Benign prostatic hyperplasia without lower urinary tract symptoms; E11.9 Type 2 diabetes mellitus without complications; E78.5 Hyperlipidemia, unspecified; I10 Essential (primary) hypertension
CPT/HCPCS: 36415; 74176; 80053; 81001; 83690; 85007; 85027

== ENCOUNTER 2022-08-11 16:27 | Emergency (ER) | payer MEDICAID ==
[~2022-08-11] VITALS: Ht 172.7 cm; Wt 133.9 kg
[~2022-08-11 16:27] MED LIST changes: +ACET-1080 PO; +TAM04C PO
[2022-08-11 17:10] LABS: Basophils # (auto) 0 10 ^3/uL (0-0.2); Basophils % (auto) 0.6 % (0.0-2.0); Eosinophils # (auto) 0.2 10 ^3/uL (0-0.8); Eosinophils % (auto) 2.5 % (0.0-7.0); Hematocrit 39.8 % (41.0-53.0); Hemoglobin 14.3 g/dL (13.5-17.5); Lymphocytes # (auto) 1.5 10 ^3/uL (0.4-5.4); Lymphocytes % (auto) 21.7 % (10.0-50.0); Mean Corpuscular Hemoglobin 29.8 pg (28.0-32.0); Mean Corpuscular Volume 82.8 fL (80.0-100.0); Monocytes # (auto) 0.9 10 ^3/uL (0-1.3); Monocytes % (auto) 13.3 % (0.0-12.0); Neutrophils # (auto) 4.2 10 ^3/uL (1.6-8.6); Neutrophils % (auto) 61.9 % (37.0-80.0); Nucleated Red Blood Cells % 0.2 %; Red Blood Cells 4.81 10^6/uL (4.5-5.90); Red Cell Distribution Width 14.5 % (11.8-14.3); White Blood Cell 6.7 10^3/uL (4.4-10.8)
[2022-08-11 17:33] LABS: Albumin 3.4 g/dL (3.4-5.0); Calcium 8.8 mg/dL (8.5-10.1); Potassium 4.1 mmol/L (3.5-5.1)
[2022-08-11 17:37] LABS: BUN/Creatinine Ratio 13.7 (10.0-20.0); Bilirubin, Total 0.9 mg/dL (0.2-1.0); Total Protein 6.5 g/dL (6.4-8.2)
[2022-08-11 21:33] VITALS: BP 166/98
== END 2022-08-11 23:19 | disposition home or self-care (01) ==
LOC: ER 16:27
DX: E11.65 Type 2 diabetes mellitus with hyperglycemia (principal); I10 Essential (primary) hypertension; E78.5 Hyperlipidemia, unspecified; R07.89 Other chest pain
CPT/HCPCS: 36415; 71046; 80053; 83880; 84484; 85025; 93005

== ENCOUNTER 2022-08-30 07:29 | Emergency (ER) | payer MEDICAID ==
[~2022-08-30] VITALS: Ht 172.7 cm; Wt 133.0 kg
[2022-08-30 07:48] VITALS: BP 145/79
[2022-08-30] MEDS ORDERED: PROM1SOL4 PO (08:29)
[2022-08-30] MEDS ORDERED: LEVO500T31 PO (08:29)
== END 2022-08-30 08:35 | disposition home or self-care (01) ==
LOC: ER 07:29
DX: J20.9 Acute bronchitis, unspecified (principal); I10 Essential (primary) hypertension; E11.9 Type 2 diabetes mellitus without complications; E78.5 Hyperlipidemia, unspecified; R07.89 Other chest pain
CPT/HCPCS: 71045

== ENCOUNTER 2022-11-28 17:01 | Emergency (ER) | payer MEDICAID ==
[~2022-11-28] VITALS: Ht 172.7 cm; Wt 139.9 kg
[~2022-11-28 17:01] MED LIST changes: +AZIT-43 PO; -AZIT250T9 PO; +IBUP-1456 PO; -IBUP800T27 PO; +LEVO500T31 PO; +LORA-1130 PO; -LORA-664 PO; +PROM1SOL4 PO; -SUCR1SUS10 PO; +SUCR1SUS26 PO; -TAM04C PO; +TAMS-35 PO
[2022-11-28] MEDS ORDERED: BENZ100C97 PO (18:07)
[2022-11-28] MEDS ORDERED: PROM1SOL4 PO (18:07)
[2022-11-28 18:14] VITALS: BP 172/93; PULSE 85; RESP 15; TEMP 97.1; O2SAT 96
== END 2022-11-28 18:14 | disposition home or self-care (01) ==
LOC: ER 17:01
DX: R05.9 Cough, unspecified (principal); E11.9 Type 2 diabetes mellitus without complications; E78.5 Hyperlipidemia, unspecified; I10 Essential (primary) hypertension; E66.01 Morbid (severe) obesity due to excess calories; Z88.6 Allergy status to analgesic agent; Z68.42 Body mass index [BMI] 45.0-49.9, adult
CPT/HCPCS: 71046

== ENCOUNTER 2022-12-16 07:59 | Emergency (ER) | payer MEDICAID ==
[~2022-12-16] VITALS: Ht 172.7 cm; Wt 137.0 kg
[~2022-12-16 07:59] MED LIST changes: +BENZ100C97 PO
[2022-12-16 09:30] VITALS: BP 149/103; PULSE 72; RESP 20; TEMP 97.9; O2SAT 97
[2022-12-16] MEDS ORDERED: TETRACAINE HCL 0.5% OPTH(EYE) SOLN 4ML RIGHTEYE ONE (10:00)
[2022-12-16] MEDS ORDERED: FLUORESCEIN SOD OPTH TEST STRIP RIGHTEYE ONE (10:00)
[2022-12-16] MEDS ORDERED: ERY05OO OP (10:43)
== END 2022-12-16 11:09 | disposition home or self-care (01) ==
LOC: ER 07:59
DX: S05.01XA Injury of conjunctiva and corneal abrasion without foreign body, right eye, initial encounter (principal); I10 Essential (primary) hypertension; E11.9 Type 2 diabetes mellitus without complications; E78.5 Hyperlipidemia, unspecified; Z79.1 Long term (current) use of non-steroidal anti-inflammatories (NSAID); Z79.2 Long term (current) use of antibiotics; Z79.899 Other long term (current) drug therapy; X58.XXXA Exposure to other specified factors, initial encounter; Y93.89 Activity, other specified; Y92.89 Other specified places as the place of occurrence of the external cause; Y99.8 Other external cause status

== ENCOUNTER 2023-01-13 07:20 | Emergency (ER) | payer MEDICAID ==
[~2023-01-13] VITALS: Ht 172.7 cm; Wt 134.1 kg
[~2023-01-13 07:20] MED LIST changes: +ERY05OO OP
[2023-01-13 07:43] VITALS: BP 149/94; PULSE 71; RESP 16; TEMP 97.9; O2SAT 96
[2023-01-13] MEDS ORDERED: OMEP-335 PO (08:37)
[2023-01-13] MEDS ORDERED: CETI10CA PO (08:37)
[2023-01-13] MEDS ORDERED: PROM1SOL4 PO (08:37)
== END 2023-01-13 08:41 | disposition home or self-care (01) ==
LOC: ER 07:20
DX: R05.9 Cough, unspecified (principal); I10 Essential (primary) hypertension; E11.9 Type 2 diabetes mellitus without complications; E78.5 Hyperlipidemia, unspecified; R07.89 Other chest pain; Z79.1 Long term (current) use of non-steroidal anti-inflammatories (NSAID); Z79.899 Other long term (current) drug therapy
CPT/HCPCS: 71046

== ENCOUNTER 2023-01-29 07:15 | Emergency (ER) | payer MEDICAID ==
[~2023-01-29] VITALS: Ht 172.7 cm; Wt 134.9 kg
[~2023-01-29 07:15] MED LIST changes: +CETI10CA PO; +OMEP-335 PO
[2023-01-29 07:53] VITALS: BP 161/89; PULSE 83; TEMP 97.9
[2023-01-29 07:59] LABS: COVID19 ANTIGEN SOFIA FIA NEGATIVE (NEGATIVE)
[2023-01-29 08:00] LABS: Rapid Influenza A Negative (Negative); Rapid Influenza B Negative (Negative)
[2023-01-29] MEDS ORDERED: IPRATROPIUM BROM 0.5 MG/2.5ML INH SOL NEB ONE (08:15)
[2023-01-29] MEDS ORDERED: ALBUTEROL SULF 2.5 MG/0.5ML(0.5%) NEB SOLN NEB ONE (08:15)
[2023-01-29 08:33] VITALS: RESP 22; O2SAT 96
[2023-01-29] MEDS ORDERED: BENZ200C64 PO (08:48)
[2023-01-29] MEDS ORDERED: PRED20TA2 PO (08:48)
[2023-01-29] MEDS ORDERED: LEVO500T91 PO (08:48)
== END 2023-01-29 09:03 | disposition home or self-care (01) ==
LOC: ER 07:15
DX: J20.9 Acute bronchitis, unspecified (principal); E66.01 Morbid (severe) obesity due to excess calories; E11.9 Type 2 diabetes mellitus without complications; E78.5 Hyperlipidemia, unspecified; I10 Essential (primary) hypertension; Z20.822 Contact with and (suspected) exposure to COVID-19
CPT/HCPCS: 36415; 71046; 87426; 87804; 94640; 99284; J7644

== ENCOUNTER 2023-04-03 18:10 | Emergency (ER) | payer MEDICAID ==
[~2023-04-03] VITALS: Ht 172.7 cm; Wt 85.0 kg
[~2023-04-03 18:10] MED LIST changes: +BENZ200C64 PO; +LEVO500T91 PO; +PRED20TA2 PO
[2023-04-03 18:52] VITALS: PULSE 101
[2023-04-03] MEDS ORDERED: IPRATROPIUM BROM 0.5 MG/2.5ML INH SOL NEB ONE (19:15)
[2023-04-03] MEDS ORDERED: ALBUTEROL SULF 2.5 MG/0.5ML(0.5%) NEB SOLN NEB ONE (19:15)
[2023-04-03] MEDS ORDERED: ALBUTEROL SULF 2.5 MG/0.5ML(0.5%) NEB SOLN ONE (19:21)
[2023-04-03] MEDS ORDERED: IPRATROPIUM BROM 0.5 MG/2.5ML INH SOL ONE (19:21)
[2023-04-03 19:28] VITALS: RESP 18; O2SAT 99
[2023-04-03] MEDS ORDERED: METH4PAK PO (20:12)
[2023-04-03] MEDS ORDERED: AZIT1POW PO (20:12)
[2023-04-03] MEDS ORDERED: ALBUAER3 IN (20:12)
== END 2023-04-03 23:09 | disposition home or self-care (01) ==
LOC: ER 18:10
DX: J20.9 Acute bronchitis, unspecified (principal); I10 Essential (primary) hypertension; E11.9 Type 2 diabetes mellitus without complications; E78.5 Hyperlipidemia, unspecified; Z85.9 Personal history of malignant neoplasm, unspecified; Z98.890 Other specified postprocedural states; Z79.899 Other long term (current) drug therapy
CPT/HCPCS: 71046; 94640; 99283; J7644

== ENCOUNTER 2023-04-09 11:59 | Emergency (ER) | payer MEDICAID ==
[~2023-04-09] VITALS: Ht 172.7 cm; Wt 168.0 kg
[~2023-04-09 11:59] MED LIST changes: +AZIT1POW PO; +METH4PAK PO
[2023-04-09 12:10] VITALS: BP 13/84; PULSE 70; RESP 20; O2SAT 96
[2023-04-09] MEDS ORDERED: BENZ100C97 PO (17:08)
[2023-04-09] MEDS ORDERED: GUAI100S6 PO (17:08)
[2023-04-09] MEDS ORDERED: GUAISYP6 PO (17:10)
[2023-04-09] MEDS ORDERED: PROM1SOL4 PO (17:18)
== END 2023-04-09 17:23 | disposition home or self-care (01) ==
LOC: ER 11:59
DX: J20.9 Acute bronchitis, unspecified (principal); E11.9 Type 2 diabetes mellitus without complications; E78.5 Hyperlipidemia, unspecified; I10 Essential (primary) hypertension
CPT/HCPCS: 71046

== ENCOUNTER 2023-06-28 09:02 | Emergency (ER) | payer MEDICAID ==
[~2023-06-28] VITALS: Ht 172.7 cm; Wt 129.0 kg
[2023-06-28 09:18] LABS: Basophils # (auto) 0 10 ^3/uL (0-0.2); Basophils % (auto) 0.6 % (0.0-2.0); Eosinophils # (auto) 0.2 10 ^3/uL (0-0.8); Hemoglobin 15.5 g/dL (13.5-17.5); Lymphocytes # (auto) 1.2 10 ^3/uL (0.4-5.4); Lymphocytes % (auto) 18.8 % (10.0-50.0); Mean Corpuscular Hemoglobin 27.7 pg (28.0-32.0); Mean Corpuscular Hgb Conc. 33.6 g/dL (32.0-36.0); Mean Corpuscular Volume 82.5 fL (80.0-100.0); Monocytes # (auto) 0.6 10 ^3/uL (0-1.3); Monocytes % (auto) 8.8 % (0.0-12.0); Neutrophils # (auto) 4.5 10 ^3/uL (1.6-8.6); Neutrophils % (auto) 68.8 % (37.0-80.0); Nucleated Red Blood Cells % 0.2 %; Red Blood Cells 5.58 10^6/uL (4.5-5.90); White Blood Cell 6.5 10^3/uL (4.4-10.8)
[2023-06-28 09:20] VITALS: PULSE 72; RESP 15; O2SAT 97
[2023-06-28 09:33] LABS: INR 1.06 (0.9-1.15); Partial Thromboplastin Time 29.1 SEC (24.5-34.5); Prothrombin Time 11.1 sec (9.3-11.8)
[2023-06-28 09:36] LABS: Alanine Aminotransferase 25 U/L (7-40); Albumin 4.3 g/dL (3.2-4.8); Alkaline Phosphatase 69 U/L (46-116); Anion Gap 2 (5-15); Aspartate Aminotransferase 16 U/L (13-40); BUN/Creatinine Ratio 15.8 (10.0-20.0); Blood Urea Nitrogen 27 mg/dL (9-23); Calcium 9.5 mg/dL (8.5-10.1); Carbon Dioxide 29 mmol/L (20-30); Chloride 99 mmol/L (98-107); Glucose 362 mg/dL (74-106); Potassium 4.5 mmol/L (3.5-5.1); Sodium 130 mmol/L (136-145)
[2023-06-28 09:37] LABS: Bilirubin, Total 0.9 mg/dL (0.2-1.0); Total Protein 6.4 g/dL (5.7-8.2)
[2023-06-28 10:00] LABS: Magnesium 1.6 mg/dL (1.6-2.6)
[2023-06-28 10:09] LABS: Urine Bacteria NONE SEEN /hpf (None Seen); Urine Blood Negative /uL (Negative); Urine Clarity Clear (Clear); Urine Protein, UAD 1+ (Negative); Urine Specific Gravity 1.015 (1.001-1.035); Urine Urobilinogen Normal (Negative); Urine WBC <1 /hpf (0 - 3)
[2023-06-28 10:13] LABS: Urine Color Yellow (Yellow)
[2023-06-28] MEDS: SODIUM CHLORIDE 0.9% 1,000 ML IVB ONE (11:58)
[2023-06-28] MEDS: INSULIN LISPRO (HUMAN) 100 UNITS/ML ML SC ONE (15:08)
[2023-06-28 16:00] VITALS: TEMP 98.1
[2023-06-28] MEDS ORDERED: OLME1TAB73 PO (16:44)
[2023-06-28 17:00] VITALS: BP 129/92; PULSE 72; RESP 20; O2SAT 94
== END 2023-06-28 17:24 | disposition home or self-care (01) ==
LOC: ER 09:02
DX: R07.89 Other chest pain (principal); E11.65 Type 2 diabetes mellitus with hyperglycemia; E11.21 Type 2 diabetes mellitus with diabetic nephropathy; I10 Essential (primary) hypertension; J44.9 Chronic obstructive pulmonary disease, unspecified; E78.5 Hyperlipidemia, unspecified; Z79.1 Long term (current) use of non-steroidal anti-inflammatories (NSAID); Z79.899 Other long term (current) drug therapy; Z79.2 Long term (current) use of antibiotics
CPT/HCPCS: 36415; 71046; 80053; 81001; 82962; 83735; 83880; 84484; 85025; 85379; 85610; 85730; 93005; 96360; 96361; 96372; 99285; J1815; J7030

== ENCOUNTER 2024-02-16 09:07 | Emergency (ER) | payer MEDICAID ==
[~2024-02-16] VITALS: Ht 172.7 cm; Wt 115.6 kg
[~2024-02-16 09:07] MED LIST changes: +OLME40TA76 PO
[2024-02-16 10:05] VITALS: BP 168/93; PULSE 86; RESP 18; TEMP 97.7; O2SAT 97
[2024-02-16] MEDS ORDERED: IBUP-1454 PO (10:07)
== END 2024-02-16 10:12 | disposition home or self-care (01) ==
LOC: ER 09:07
DX: S70.11XA Contusion of right thigh, initial encounter (principal); I10 Essential (primary) hypertension; E11.9 Type 2 diabetes mellitus without complications; E78.5 Hyperlipidemia, unspecified; Z79.899 Other long term (current) drug therapy; X58.XXXA Exposure to other specified factors, initial encounter; Y93.89 Activity, other specified; Y92.89 Other specified places as the place of occurrence of the external cause; Y99.8 Other external cause status

== ENCOUNTER 2024-03-05 08:52 | Emergency (ER) | payer MEDICAID ==
[~2024-03-05] VITALS: Ht 172.7 cm; Wt 119.0 kg
[~2024-03-05 08:52] MED LIST changes: +IBUP-1454 PO
[2024-03-05 10:12] VITALS: BP 168/73; PULSE 71; RESP 20; TEMP 98.2; O2SAT 96
--- NOTE | 2024-03-05 10:40 | ED.PDOC ---
SOB-HPI HPI Comments A 58 YEAR OLD MALE PRESENTS TO THE ED WITH COMPLAINT OF COUGH. PATIENT STATES HE HAS BEEN EXPERIENCING A COUGH AND CONGESTION FOR THE PAST 3 DAYS. PATIENT REPORTS HE HAS TRIED [id number] COUGH MEDICATIONS, BUT NOTES THERE HAS BEEN NO IMPROVEMENT. PATIENT DENIES FEVER, CHILLS, SHORTNESS OF BREATH, CHEST PAIN, ABDOMINAL PAIN, NAUSEA, VOMITING, HEADACHE, OR OTHER COMPLAINTS. NO OTHER SYMPTOMS OR MODIFYING FACTORS AT THIS TIME. PATIENT IS ALERT, ORIENTED X 4, AND HAS STEADY GAIT. Chief Complaint: Cough Time Seen by MD: 09:16 Primary Care Provider: ELIA Reviewed notes: Nurses Notes, Medications, Allergies Information Source: Patient Mode of Arrival: Ambulatory Severity: Moderate Timing: Days Duration: Since onset, Days Context: Spontaneous Onset PE Risk Factors: None History of: None Prehospital treatment: None Modifying Factors: Nothing Associated Signs and Symptoms: Cough, Nasal Congestion If cough with SOB: Productive Past Medical History PAST MEDICAL HISTORY: Cancer, DM, High Lipids, HTN Surgical History: Denies all surgeries Family History Family History: Reviewed,noncontributory to illness Social History Smoker: Non-Smoker Alcohol: Rarely Drugs: Denies Drug Use Lives In: Home Constitutional: denies: chills, diaphoresis, fatigue, fever, malaise, sweats, weakness, others EENTM: reports: nose congestion; denies: blurred vision, double vision, ear bleeding, ear discharge, ear drainage, ear pain, ear ringing, eye pain, eye redness, hearing loss, mouth pain, mouth swelling, nasal discharge, nose bleeding, nose pain, photophobia, tearing, throat pain, throat swelling, voice changes, others Respiratory: reports: cough; denies: hemoptysis, orthopnea, SOB at rest, shortness of breath, SOB with excertion, stridor, wheezing, others Cardiovascular: denies: chest pain, dizzy spells, diaphoresis, Dyspnea on exertion, edema, irregular heart beat, left arm pain, lightheadedness, palpitations, PND, syncope, others Gastrointestinal: denies: abdomen distended, abdominal pain, blood streaked bowels, constipated, diarrhea, dysphagia, difficulty swallowing, hematemesis, melena, nausea, poor appetite, poor fluid intake, rectal bleeding, rectal pain, vomiting, others Genitourinary: denies: burning, dysuria, flank pain, frequency, hematuria, incontinence, penile discharge, penile sore, pain, testicle pain, testicle swelling, urgency, others Neurological: denies: dizziness, fainting, headache, left sided numbness, left sided weakness, numbness, paresthesia, pre-existing deficit, right sided numbness, right sided weakness, seizure, speech problems, tingling, tremors, weakness, others Musculoskeletal: denies: back pain, gout, joint pain, joint swelling, muscle pain, muscle stiffness, neck pain, others Integumetry: denies: bruises, change in color, change in hair/nails, dryness, laceration, lesions, lumps, rash, wounds, others Allergic/Immunocompromised: denies: Difficulty Healing, Frequent Infections, Hives, Itching, others Hematologic/Lymphatic: denies: anemia, blood clots, easy bleeding, easy bruising, swollen glands, others Endocrine: denies: excessive hunger, excessive sweating, excessive thirst, excessive urination, flushing, intolerance to cold, intolerance to heat, une xplained weight gain, unexplained weight loss, others Psychiatric: denies: anxiety, bipolar disorder, depression, hopeless, panic disorder, schizophrenia, sleepless, suicidal, others All Other Systems: Reviewed and Negative Physical Exam General Appearance: No Apparent Distress, Normal HEENT: Normal ENT Inspection, PERRL/EOMI, Pharynx Normal, TMs Normal Neck: Full Range of Motion, Non-Tender, Normal, Normal Inspection Respiratory: Chest Non-Tender, Expiration, No Accessory Muscle Use, No Res piratory Distress, Rhonchi Cardiovascular: No Edema, No JVD, No Murmur, No Gallop, Normal Peripheral Pulse s, Regular Rate/Rhythm Breast Exam: Deferred Gastrointestinal: No Organomegaly, Non Tender, No Pulsatile Mass, Normal Bowel Sounds, Soft Genitalia: Deferred Pelvic: Deferred Rectal: Deferred Extremities: No calf tenderness, Normal capillary refill, Normal inspection, Normal range of motion, Non-tender, No pedal edema Musculoskeletal : Apperance: Normal Neurologic: Alert, medical office clerk II-XII nml as Tested, No Motor Deficits, Normal Affect, Normal Mood, No Sensory Deficits Cerebellar Function: Normal Reflexes: Normal Skin: Dry, Normal Color, Warm Peripheral Pulses: 2+ carotid (R), 2+ carotid (L) Lymphatic: No Adenopathy Was a procedure done? Was a procedure done?: No Differential Dx Differential Diagnosis: Bronchitis, Pneumonia, Sinusitis, Allergic Rhinitis, Otitis Media, Pharyngitis, URI X-Ray, Labs, Meds, VS Vital Signs Date Time Temp Pulse Resp B/P (MAP) Pulse Ox O2 Delivery O2 Flow Rate FiO2 03/05/24 10:12 98.2 71 20 168/73 (104) 96 98.2 03/05/24 10:12 71 20 96 Room Air 03/05/24 09:13 98.2 71 20 168/73 (104) 96 X-Ray, Labs, Meds, VS Comment XR CHEST: [INTERPRETED BY ME. NO ACUTE FINDINGS. NO PNEUMONIA. NO CONSOLIDATIONS. NO INFILTRATES. PENDING RADIOLOGIST REPORT. ] Images Reviewed?: Images reviewed and evaluated by me Time of 1ST Reevaluation: 10:45 Reevaluation 1ST: Improved Patient Education/Counseling: Diagnosis, Treatment, Need For Follow Up Family Education/Counseling: Diagnosis, Treatment, Need For Follow Up Medical Screening: No EMC Exist At This Time Departure 1 Departure Time of Disposition: 11:00 Impression: Primary Impression: Acute bronchitis Qualified Codes: J20.9 - Acute bronchitis, unspecified Disposition: 01 HOME / SELF CARE / HOMELESS Condition: Stable Additional Instructions: FOLLOW-UP WITH PCP IN 1 TO 2 DAYS. TAKE MEDICATIONS PRESCRIBED. RETURN TO ED FOR ANY NEW OR WORSENING SYMPTOMS. e-Prescriptions Benzonatate (Benzonatate) 200 Mg Cap 1 CAP PO TID, #30 CAP Prov: DAYNA GONZALES 03/05/24 Prednisone (Prednisone) 20 Mg Tab 60 MG PO DAILY, #15 TAB Prov: DAYNA GONZALES 03/05/24 Levofloxacin Hemihydrate (LEVAQUIN 500 MG) 500 Mg Tab 1 TAB PO DAILY, #10 TAB Prov: DAYNA GONZALES 03/05/24 Discharged With: Self Critical Care Note Critical Care Time?: No Stability Stability form required: No Heart Score Heart Score: Heart Score Response (Comments) Value History N/A 0 EKG N/A 0 Age N/A 0 Risk Factors N/A 0 Troponin N/A 0 Total 0 I personally scribed for DAYNA GONZALES ([email or web address]) on 03/05/24 at 10:40. Electronically submitted by Panfilo Veliz ([email or web address]). DAYNA GONZALES Mar 05, 2024 10:40
--- NOTE | 2024-03-05 10:43 | DVH ---
EXAM: XY CHEST TWO VIEWS ROUTINE CLINICAL HISTORY: COUGH COMPARISON: XY CHEST TWO VIEWS ROUTINE on DOS: 06/28/23, XY CHEST TWO VIEWS ROUTINE on DOS: 04/09/23, X Y CHEST TWO VIEWS ROUTINE on DOS: 04/03/23, XY CHEST TWO VIEWS ROUTINE on DOS: 01/29/23, XY CHEST TWO VIEWS ROUTINE on DOS: 01/13/23 TECHNIQUE: Frontal and lateral view of the chest was obtained FINDINGS: Lines and Tubes: None Lungs: No focal consolidation. Pleura: No effusion. No pneumothorax. Cardiomediastinal contours: Unremarkable Bones: No acute osseous abnormality. IMPRESSION: No acute cardiopulmonary disease.
== END 2024-03-05 10:44 | disposition home or self-care (01) ==
LOC: ER 08:52
DX: J20.9 Acute bronchitis, unspecified (principal); I10 Essential (primary) hypertension; E11.9 Type 2 diabetes mellitus without complications
CPT/HCPCS: 71046

== ENCOUNTER 2024-10-07 07:59 | Emergency (ER) | payer MEDICAID ==
[~2024-10-07] VITALS: Ht 172.7 cm; Wt 115.7 kg
--- NOTE | 2024-10-07 08:25 | ED.PDOC ---
SOB-HPI HPI Comments 59 year old male presents to the ED with a chief complaint of cough. Patient states he has been experiencing productive cough with white phlegm, states he has been seen in this ED several times for similar symptoms. PMHx cancer, HTN, DM, HLD. Denies headache, dizziness, fevers, chills, nausea, vomiting, diarrhea, chest pain,shortness of breath. No other symptoms or modifying factors present at this time. Chief Complaint: Cough Time Seen by MD: 08:15 Primary Care Provider: ELIA Ricketts notes: Medications, Allergies Information Source: Patient Mode of Arrival: Ambulatory Severity: Moderate Duration: Since onset Context: At Rest PE Risk Factors: None History of: None Prehospital treatment: None Modifying Factors: Nothing Associated Signs and Symptoms: Cough If cough with SOB: Productive, White Past Medical History PAST MEDICAL HISTORY: Cancer, DM, High Lipids, HTN Surgical History: Denies all surgeries Family History Family History: Reviewed,noncontributory to illness Social History Smoker: Non-Smoker Alcohol: Rarely Drugs: Denies Drug Use Lives In: Home Constitutional: denies: chills, diaphoresis, fatigue, fever, malaise, sweats, weakness, others EENTM: denies: blurred vision, double vision, ear bleeding, ear discharge, ear drainage, ear pain, ear ringing, eye pain, eye redness, hearing loss, mouth pa in, mouth swelling, nasal discharge, nose bleeding, nose congestion, nose pain, photophobia, tearing, throat pain, throat swelling, voice changes, others Respiratory: reports: cough; denies: hemoptysis, orthopnea, SOB at rest, shortness of breath, SOB with excertion, stridor, wheezing, others Cardiovascular: denies: chest pain, dizzy spells, diaphoresis, Dyspnea on exertion, edema, irregular heart beat, left arm pain, lightheadedness, palpitat ions, PND, syncope, others Gastrointestinal: denies: abdomen distended, abdominal pain, blood streaked bow els, constipated, diarrhea, dysphagia, difficulty swallowing, hematemesis, melena, nausea, poor appetite, poor fluid intake, rectal bleeding, rectal pain, vomiting, others Genitourinary: denies: burning, dysuria, flank pain, frequency, hematuria, incontinence, penile discharge, penile sore, pain, testicle pain, testicle swelling, urgency, others Neurological: denies: dizziness, fainting, headache, left sided numbness, left sided weakness, numbness, paresthesia, pre-existing deficit, right sided numbness, right sided weakness, seizure, speech problems, tingling, tremors, weakness, others Musculoskeletal: denies: back pain, gout, joint pain, joint swelling, muscle pain, muscle stiffness, neck pain, others Integumetry: denies: bruises, change in color, change in hair/nails, dryness, laceration, lesions, lumps, rash, wounds, others Allergic/Immunocompromised: denies: Difficulty Healing, Frequent Infections, Hives, Itching, others Hematologic/Lymphatic: denies: anemia, blood clots, easy bleeding, easy bruising, swollen glands, others Endocrine: denies: excessive hunger, excessive sweating, excessive thirst, excessive urination, flushing, intolerance to cold, intolerance to heat, unexplained weight gain, unexplained weight loss, others Psychiatric: denies: anxiety, bipolar disorder, depression, hopeless, panic disorder, schizophrenia, sleepless, suicidal, others All Other Systems: Reviewed and Negative Physical Exam General Appearance: Normal HEENT: Normal ENT Inspection, Pharynx Normal, TMs Normal Neck: Full Range of Motion, Non-Tender, Normal, Normal Inspection Respiratory: Chest Non-Tender, Lungs Clear, No Accessory Muscle Use, No Respiratory Distress, Normal Breath Sounds Cardiovascular: No Edema, No JVD, No Murmur, No Gallop, Normal Peripheral Pulses, Regular Rate/Rhythm Breast Exam: Deferred Gastrointestinal: No Organomegaly, Non Tender, No Pulsatile Mass, Normal Bowel Sounds, Soft Genitalia: Deferred Pelvic: Deferred Rectal: Deferred Extremities: No calf tenderness, Normal capillary refill, Normal inspection, Normal range of motion, Non-tender, No pedal edema Musculoskeletal : Apperance: Normal Neurologic: Alert, stock shipper II-XII nml as Tested, No Motor Deficits, Normal Affect, Normal Mood, No Sensory Deficits Cerebellar Function: Normal Reflexes: Normal Skin: Dry, Normal Color, Warm Lymphatic: No Adenopathy Was a procedure done? Was a procedure done?: No Differential Dx Differential Diagnosis: Bronchitis, Pneumonia, URI X-Ray, Labs, Meds, VS Vital Signs Date Time Temp Pulse Resp B/P (MAP) Pulse Ox O2 Delivery O2 Flow Rate FiO2 10/07/24 08:15 18 96 Room Air* 0 21 10/07/24 08:15 98.7 78 18 147/90 109 96 98.7 [place] [id number] Ph: [phone] DIAGNOSTIC IMAGING Diagnostic Imaging Report : [id number] Signed PATIENT: MEL LUKE ACCT: [id number] UNIT: [id number] : 1965 LOC: ER ROOM / BED: / AGE / SEX: 59 / M ADM STATUS: REG ER SERVICE 9 ORDERING PHYSICIAN: DIONISIO MURPHY MD PROCEDURE(s): CXR2 - CHEST TWO VIEWS ROUTINE REASON: PERSISTANT COUGH ORDER NUMBER(s): [id number], ACCESSION NUMBER(s): [id number] XY CHEST TWO VIEWS ROUTINE, HISTORY: PERSISTANT COUGH COMPARISON: XY CHEST TWO VIEWS ROUTINE on DOS: 03/05/24, XY CHEST TWO VIEWS ROUTINE on DOS: 06/28/23, XY CHEST TWO VIEWS ROUTINE on DOS: 04/09/23 XY CHEST TWO VIEWS ROUTINE on DOS: 03/05/24, XY CHEST TWO VIEWS ROUTINE on DOS: 06/28/23, XY CHEST TWO VIEWS ROUTINE on DOS: 04/09/23 TECHNICAL DATA: 2 view of the chest was obtained. FINDINGS: Lines and tubes: None Cardiomediastinal silhouette: normal Pulmonary vasculature: normal Lung expansion: normal Lung airspace: normal Lung interstitium: normal Pleura: normal Pneumothorax: no Bones: Unremarkable Other: no IMPRESSION: No acute intrathoracic abnormality. ATED BY: ABNER GUO MD DICTATED DATE/TIME: 10/07/24829 SIGNED BY: ABNER GUO MD SIGNED DATE/TIME: 10/07/24829 CC: Time of 1ST Reevaluation: 08:45 Reevaluation 1ST: Unchanged Patient Education/Counseling: Diagnosis, Treatment, Prognosis Family Education/Counseling: No Family Present SEPSIS Sepsis Screen Physician Orders Chest Two Views Routine (10/07/24 08:10) Azithromycin Tablet (Zithromax Tablet) (10/07/24 09:30) Prednisone Tablet (10/07/24 09:30) Vital Signs Date Time Temp Pulse Resp B/P (MAP) Pulse Ox O2 Delivery O2 Flow Rate FiO2 10/07/24 08:15 18 96 Room Air* 0 21 10/07/24 08:15 98.7 78 18 147/90 (109) 96 98.7 Departure 1 Departure Time of Disposition: 09:28 (Patient likely with a acute bronchitis. We will discharge patient home with outpatient follow up.) Impression: Primary Impression: Acute bronchitis Qualified Codes: J20.9 - Acute bronchitis, unspecified Disposition: HOME / SELF CARE / HOMELESS Condition: Stable Additional Instructions: You likely have bronchitis. You were prescribed antibiotics, steroids, and inhaler. Please take as directed. If your symptoms worsen or if any other concerns please return to the emergency room. e-Prescriptions Azithromycin (ZITHROMAX TABLET) 250 Mg Tb 250 MG PO DAILY for 4 Days, #4 TAB Prov: DIONISIO MURPHY MD 10/07/24 Albuterol Sulfate (VENTOLIN MDI) 90 Mcg Ih 90 MCG IN Q4HP PRN for 5 Days, #1 INH Prov: DIONISIO MURPHY MD 10/07/24 Prednisone (Prednisone) 20 Mg Tab 20 MG PO DAILY for 5 Days, #5 MG Prov: DIONISIO MURPHY MD 10/07/24 Discharged With: Self Critical Care Note Critical Care Time?: No Stability Stability form required: No Heart Score Heart Score: Heart Score Response (Comments) Value History N/A 0 EKG N/A 0 Age N/A 0 Risk Factors N/A 0 Troponin N/A 0 Total 0 I personally scribed for DIONISIO MURPHY MD ([email or web address]) on 10/07/24 at 08:25. Electronically submitted by Lilibeth Ferrera ([email or web address]). I personally scribed for DIONISIO MURPHY MD ([email or web address]) on 10/07/24 at 08:35. Electronically submitted by Lilibeth Ferrera ([email or web address]). DIONISIO MURPHY MD Oct 07, 2024 08:25
--- NOTE | 2024-10-07 08:33 | DVH ---
XY CHEST TWO VIEWS ROUTINE, HISTORY: PERSISTANT COUGH COMPARISON: XY CHEST TWO VIEWS ROUTINE on DOS: 03/05/24, XY CHEST TWO VIEWS ROUTINE on DOS: 06/28/23, X Y CHEST TWO VIEWS ROUTINE on DOS: 04/09/23 XY CHEST TWO VIEWS ROUTINE on DOS: 03/05/24, XY CHEST TWO VIEWS ROUTINE on DOS: 06/28/23, XY CHEST TWO VIEWS ROUTINE on DOS: 04/09/23 TECHNICAL DATA: 2 view of the chest was obtained. FINDINGS: Lines and tubes: None Cardiomediastinal silhouette: normal Pulmonary vasculature: normal Lung expansion: normal Lung airspace: normal Lung interstitium: normal Pleura: normal Pneumothorax: no Bones: Unremarkable Other: no IMPRESSION: No acute intrathoracic abnormality.
[2024-10-07] MEDS: ALBUTEROL SULF 2.5 MG/0.5ML(0.5%) NEB SOLN NEB ONE (09:30)
[2024-10-07] MEDS: IPRATROPIUM BROM 0.5 MG/2.5ML INH SOL NEB ONE (09:30)
[2024-10-07] MEDS ORDERED: ALBUAER3 IN (10:02)
[2024-10-07] MEDS ORDERED: PRED20TA2 PO (10:02)
[2024-10-07] MEDS ORDERED: AZIT-185 PO (10:02)
[2024-10-07] MEDS: predniSONE 20 MG TAB PO ONE (10:28)
[2024-10-07] MEDS: AZITHROMYCIN 250 MG TAB PO ONE (10:28)
[2024-10-07 10:36] VITALS: BP 128/93; PULSE 72; RESP 18; TEMP 98.9; O2SAT 100
== END 2024-10-07 11:27 | disposition home or self-care (01) ==
LOC: ER 07:59
DX: J20.9 Acute bronchitis, unspecified (principal); F10.90 Alcohol use, unspecified, uncomplicated; E11.9 Type 2 diabetes mellitus without complications; I10 Essential (primary) hypertension; E78.5 Hyperlipidemia, unspecified; Z85.9 Personal history of malignant neoplasm, unspecified; Y90.9 Presence of alcohol in blood, level not specified
CPT/HCPCS: 71046; 94640; 99283; J7512

== ENCOUNTER 2024-11-10 07:23 | Emergency (ER) | payer MEDICAID ==
[~2024-11-10] VITALS: Ht 172.7 cm; Wt 113.0 kg
[~2024-11-10 07:23] MED LIST changes: -ACET-1080 PO; -ACET1CAP14 PO; -ALOG1TAB2 PO; +AZIT-185 PO; -AZIT-43 PO; -AZIT1POW PO; -BENZ100C19 PO; -BENZ100C97 PO; -BENZ200C64 PO; -CETI10CA PO; -CYCL-837 PO; -ERY05OO OP; -HYDR-4902 PO; -IBUP-1454 PO; -IBUP-1456 PO; -LEVO500T31 PO; -LEVO500T91 PO; -LORA-1130 PO; -METH4PAK PO; -OMEP-335 PO; -OMEP20TA PO; -PROM1SOL4 PO; -SUCR1SUS26 PO; -TAMS-35 PO
--- NOTE | 2024-11-10 08:10 | ED.PDOC ---
Musculoskeletal HPI Comments A 59 year-old male, with a HX of HTN and DM, presents to the ED with a chief complaint of right calf pain with associated cramping for months. Patient states that pain is a 3/10, constant, with no associated alleviating factors. Patient has no further complaints at this time and otherwise denies further associated symptoms of numbness, weakness, dizziness, chest pain, SOB, N/V, or fever. Chief Complaint: Lower Extremity Time Seen by MD: 08:07 Primary Care Provider: JONAH Ricketts Notes: Nurses Notes, Medications, Allergies Allergies: Coded Allergies: NO KNOWN ALLERGIES (Unverified , 09/27/20) Home Meds Active Scripts Azithromycin (ZITHROMAX TABLET) 250 Mg Tb, 250 MG PO DAILY for 4 Days, #4 TAB Prov:DIONISIO MURPHY MD 10/07/24 Albuterol Sulfate (VENTOLIN MDI) 90 Mcg Ih, 90 MCG IN Q4HP PRN for 5 Days, #1 INH Prov:DIONISIO MURPHY MD 10/07/24 Prednisone (Prednisone) 20 Mg Tab, 20 MG PO DAILY for 5 Days, #5 MG Prov:DIONISIO MURPHY MD 10/07/24 Olmesartan Medoxomil (Olmesartan Medoxomil) 40 Mg Tab, 40 MG PO DAILY for 30 Days, #30 TAB Prov:SENA BLUE MD 06/28/23 Clonidine Hydrochloride (Clonidine Hcl) 0.1 Mg Tab, 0.1 MG PO BID for 10 Days, #20 MG Prov:PASQUALE BLISS MD 05/15/22 Reported Medications Atorvastatin Calcium (Lipitor) 10 Mg Tab, 10 MG PO DAILY, TAB 09/27/20 Carvedilol (Carvedilol) 12.5 Mg Tab, 12.5 MG PO Q12HR for 30 Days, MG 09/27/20 Information Source: Patient Mode of Arrival: Ambulatory Location: Right Extremity Location: Calf Timing: Months Prehospital treatment: None Severity: Moderate Able to Move Extremity: Yes Bear Weight: Limited Pain: Moderate Circumstances: Spontaneous Onset of Symptoms: Spontaneous Symptoms: Pain Associated signs and symptoms: Other (right calf pain ) Past Medical History PAST MEDICAL HISTORY: Cancer, DM, High Lipids, HTN Surgical History: Denies all surgeries Family History Family History: Reviewed,noncontributory to illness Social History Smoker: Non-Smoker Alcohol: Rarely Drugs: Denies Drug Use Lives In: Home Constitutional: denies: chills, diaphoresis, fatigue, fever, malaise, sweats, weakness, others EENTM: denies: blurred vision, double vision, ear bleeding, ear discharge, ear drainage, ear pain, ear ringing, eye pain, eye redness, hearing loss, mouth pain, mouth swelling, nasal discharge, nose bleeding, nose congestion, nose pain, photophobia, tearing, throat pain, throat swelling, voice changes, others Respiratory: denies: cough, hemoptysis, orthopnea, SOB at rest, shortness of breath, SOB with excertion, stridor, wheezing, others Cardiovascular: denies: chest pain, dizzy spells, diaphoresis, Dyspnea on exertion, edema, irregular heart beat, left arm pain, lightheadedness, palpitations, PND, syncope, others Gastrointestinal: denies: abdomen distended, abdominal pain, blood streaked bowels, constipated, diarrhea, dysphagia, difficulty swallowing, hematemesis, melena, nausea, poor appetite, poor fluid intake, rectal bleeding, rectal pain, vomiting, others Genitourinary: denies: burning, dysuria, flank pain, frequency, hematuria, inco ntinence, penile discharge, penile sore, pain, testicle pain, testicle swelling, urgency, others Neurological: denies: dizziness, fainting, headache, left sided numbness, left sided weakness, numbness, paresthesia, pre-existing deficit, right sided numbness, right sided weakness, seizure, speech problems, tingling, tremors, weakness, others Musculoskeletal: reports: others (Right Calf Pain ); denies: back pain, gout, joint pain, joint swelling, muscle pain, muscle stiffness, neck pain Integumetry: denies: bruises, change in color, change in hair/nails, dryness, laceration, lesions, lumps, rash, wounds, others Allergic/Immunocompromised: denies: Difficulty Healing, Frequent Infections, Hives, Itching, others Hematologic/Lymphatic: denies: anemia, blood clots, easy bleeding, easy bruising, swollen glands, others Endocrine: denies: excessive hunger, excessive sweating, excessive thirst, excessive urination, flushing, intolerance to cold, intolerance to heat, unexplained weight gain, unexplained weight loss, others Psychiatric: denies: anxiety, bipolar disorder, depression, hopeless, panic di sorder, schizophrenia, sleepless, suicidal, others All Other Systems: Reviewed and Negative Physical Exam General Appearance: Moderate Distress, Normal HEENT: Normal ENT Inspection, Pharynx Normal, TMs Normal Neck: Full Range of Motion, Non-Tender, Normal, Normal Inspection Respiratory: Chest Non-Tender, Lungs Clear, No Accessory Muscle Use, No Respiratory Distress, Normal Breath Sounds Cardiovascular: No Murmur, No Gallop, Regular Rate/Rhythm Breast Exam: Deferred Gastrointestinal: No Organomegaly, Non Tender, No Pulsatile Mass, Normal Bowel Sounds, Soft Genitalia: Deferred Pelvic: Deferred Rectal: Deferred Extremities: No calf tenderness, Normal capillary refill, Normal inspection, Normal range of motion, Non-tender, No pedal edema Musculoskeletal : Location: Right Extremity Location: Calf Neurologic: Alert, welder pipe making II-XII nml as Tested, No Motor Deficits, Normal Affect, Normal Mood, No Sensory Deficits Cerebellar Function: Normal Reflexes: Normal Skin: Dry, Normal Color, Warm Lymphatic: No Adenopathy Was a procedure done? Was a procedure done?: No Differential Diagnosis EXT Differential Diagnosis: Cellulitis, Deep Vein Thrombosis, Fracture, Sprain, Contusion, Arthritis X-Ray, Labs, Meds, VS Vital Signs Date Time Temp Pulse Resp B/P (MAP) Pulse Ox O2 Delivery O2 Flow Rate FiO2 11/10/24 10:14 84 20 97 Room Air* 0 21 11/10/24 09:35 98.2 78 17 142/95 (111) 94 98.2 11/10/24 09:35 78 17 94 Room Air 11/10/24 07:59 98.0 92 18 145/91 (109) 97 98.0 Lab Test 11/10/24 10:54 11/10/24 09:54 11/10/24 08:13 11/10/24 08:03 Range/Units POC Glucose 468 *H > 600 *H 70-106 mg/dl White Blood Count 5.6 4.4-10.8 10^3/uL Red Blood Count 5.46 4.5-5.90 10^6/uL Hemoglobin 15.8 13.5-17.5 g/dL Hematocrit 44.6 41.0-53.0 % Mean Corpuscular Volume 81.6 80.0-100.0 fL Mean Corpuscular Hemoglobin 29.0 28.0-32.0 pg Mean Corpuscular Hemoglobin Concent 35.5 32.0-36.0 g/dL Red Cell Distribution Width 14.6 H 11.8-14.3 % Platelet Count 203 140-450 10^3/uL Mean Platelet Volume 8.0 6.9-10.8 fL Neutrophils (%) (Auto) 64.0 37.0-80.0 % Lymphocytes (%) (Auto) 20.8 10.0-50.0 % Monocytes (%) (Auto) 8.2 0.0-12.0 % Eosinophils (%) (Auto) 2.9 0.0-7.0 % Basophils (%) (Auto) 4.1 H 0.0-2.0 % Neutrophils # (Auto) 3.6 1.6-8.6 10 ^3/uL Lymphocytes # (Auto) 1.2 0.4-5.4 10 ^3/uL Monocytes # (Auto) 0.5 0-1.3 10 ^3/uL Eosinophils # (Auto) 0.2 0-0.8 10 ^3/uL Basophils # (Auto) 0.2 0-0.2 10 ^3/uL Nucleated Red Blood Cells 0.2 % Sodium Level 130 L 136-145 mmol/L Potassium Level 4.2 3.5-5.1 mmol/L Chloride Level 93 L 98-107 mmol/L Carbon Dioxide Level 27 20-31 mmol/L Anion Gap 10 5-15 Blood Urea Nitrogen 19 9-23 mg/dL Creatinine 1.65 H 0.700-1.30 mg/dL Glomerular Filtration Rate Calc 47 >90 mL/min BUN/Creatinine Ratio 11.5 10.0-20.0 Serum Glucose 593 *H 74-106 mg/dL Calcium Level 9.9 8.7-10.4 mg/dL Magnesium Level 1.8 1.6-2.6 mg/dL Total Bilirubin 0.9 0.2-1.0 mg/dL Aspartate Amino Transferase (AST) 17 13-40 U/L Alanine Aminotransferase (ALT) 26 7-40 U/L Alkaline Phosphatase 87 46-116 U/L Total Protein 6.4 5.7-8.2 g/dL Albumin 4.3 3.2-4.8 g/dL Urine Color Light-yellow Yellow Urine Clarity Clear Clear Urine pH 6.0 5.0-9.0 Urine Specific [place] 1.029 1.001-1.035 Urine Protein 1+ H Negative Urine Ketones Negative Negative Urine Blood Negative Negative /uL Urine Nitrite Negative Negative Urine Bilirubin Negative Negative Urine Urobilinogen Normal Negative mg/dL Urine Leukocyte Esterase Negative Negative /uL Urine RBC <1 0 - 3 /hpf Urine Microscopic WBC < 1 0-3 /HPF Urine Squamous Epithelial Cells Few <5 /hpf Urine Bacteria None seen None Seen /hpf Urine Glucose 4+ H Normal mg/dL Current Medications Medications (Trade) Dose Ordered Sig/Micaela Route Start Time Stop Time Status Last Admin Sodium Chloride 1,000 ml @ 1,000 mls/hr Q1H ONCE IV 11/10/24 09:30 11/10/24 10:29 DC 11/10/24 10:00 Insulin Human Lispro (HumaLOG) 10 units ONCE ONCE SC 11/10/24 09:30 11/10/24 09:33 DC 11/10/24 09:59 Bilateral lower extremity venous duplex Clinical History: R/o dvt Comparison: None Technique: Duplex Doppler evaluation of the deep venous systems of both lower extremities from the common femoral veins to the popliteal veins including color Doppler and spectral/pulsed waveform analysis was performed. Findings: RIGHT SIDE: The common femoral vein demonstrates appropriate compressibility and waveform variability. There is compressibility/patency of the great saphenous vein at the proximal thigh. The femoral vein demonstrates appropriate compressibility and waveform variability. The deep femoral vein demonstrates appropriate compressibility and waveform variability. The popliteal vein demonstrates appropriate compressibility and waveform variability. There is normal compressibility at the tibioperoneal trunk. LEFT SIDE: The common femoral vein demonstrates appropriate compressibility and waveform variability. There is compressibility/patency of the great saphenous vein at the proximal thigh. The femoral vein demonstrates appropriate compressibility and waveform variability. The deep femoral vein demonstrates appropriate compressibility and waveform variability. The popliteal vein demonstrates appropriate compressibility and waveform variability. There is normal compressibility at the tibioperoneal trunk. Impression: No right or left femoropopliteal venous thrombosis. X-Ray, Labs, Meds, VS Comment A 59 year-old male, with a HX of HTN and DM, presents to the ED with a chief complaint of right calf pain with associated cramping for months. Patient arrives alert and oriented, ABC's intact, afebrile, vital signs stable, saturating well in room air Peripheral IV insertion+ labs were ordered. CBC was ordered to exclude anemia, blood loss, or infection. BMP was ordered to exclude electrolyte abnormalities, renal failure, dehydration, hyperglycemia Urinalysis was ordered to rule out UTI or hematuria. Diagnostic imaging, Bilaterally Lower DTV US, ordered by me and results interpreted by radiology : The patient presents with signs and symptoms consistent uncontrolled diabetes/hyperglcemia. The cause appears to be dietary / noncompliance / medication induced. No evidence of infection. Patient given IVF, and insulin 10 U subcutaneous. Recheck finger-stick blood glucose of improved significantly After observation patient and treatment noted above he showed no signs of toxcity. Patient's history, physical and workup do not reveal any evidence that patient needs admission to the hospital. The patient will need outpatient follow up with the diabetic education classes for new onset diabetes. On reevaluation, patient had symptomatic improvement. Patient is stable for discharge at this time. External notes reviewed. Test results and diagnostic imaging interpreted. All diagnostic findings, discharge care, education and instructions provided Follow-up with PCP in 2 to 3 days Patient verbalized understanding and agreed to treatment plan Vital signs stable, afebrile, no acute distress noted Patient ambulatory with strong steady gait Advised to return precautions for any new or worsening symptoms, return to ER immediately for re-evaluation Patient is aware that the purpose of this visit was for an acute medical emergency requiring emergent stabilization. Chronic conditions, including malignancies have not been ruled out. Patient is instructed to follow up with PCP as directed and discharge instructions for continued care and workup. If unable to arrange follow-up, patient is to return to the emergency department fo r reassessment. Patient (parent or legal guardian if applicable) was given verbal and written discharge instructions and acknowledges understanding. Consideration of admission (observation or admission): I considered escalation of care to admission for this patient, however given the reassuring workup, the patient is safe for outpatient management. Images Reviewed?: Images reviewed and evaluated by me Time of 1ST Reevaluation: 08:41 Reevaluation 1ST: Unchanged Patient Education/Counseling: Diagnosis, Treatment Family Education/Counseling: No Family Present Medical Screening: No EMC Exist At This Time Departure 1 Departure Time of Disposition: 11:18 Impression: Primary Impression: Hyperglycemia Additional Impression: Leg cramps Disposition: 01 HOME / SELF CARE / HOMELESS Condition: Stable Discharged With: Self Critical Care Note Critical Care Time?: No Stability Stability form required: No Heart Score Heart Score: Heart Score Response (Comments) Value History N/A 0 EKG N/A 0 Age N/A 0 Risk Factors N/A 0 Troponin N/A 0 Total 0 I personally scribed for MICHAEL CLINE CRM MANAGER ([email or web address]) on 11/10/24 at 08:10. Electronically submitted by Layla Ruiz ([employer]). I personally scribed for MICHAEL CLINE CRM MANAGER ([email or web address]) on 11/10/24 at 08:24. Electronically submitted by Layla Ruiz ([employer]). I personally scribed for MICHAEL CLINE CRM MANAGER ([email or web address]) on 11/10/24 at 08:54. Electronically submitted by Layla Ruiz ([employer]). I personally scribed for MICHAEL CLINE CRM MANAGER ([email or web address]) on 11/10/24 at 09:36. Electronically submitted by Layla Ruiz ([employer]). MICHAEL CLINE NP Nov 10, 2024 08:10
[2024-11-10 08:26] LABS: Hematocrit 44.6 % (41.0-53.0); Hemoglobin 15.8 g/dL (13.5-17.5); Mean Corpuscular Hemoglobin 29.0 pg (28.0-32.0); Mean Corpuscular Volume 81.6 fL (80.0-100.0); Nucleated Red Blood Cells % 0.2 %
[2024-11-10 08:45] LABS: Alanine Aminotransferase 26 U/L (7-40); Albumin 4.3 g/dL (3.2-4.8); Alkaline Phosphatase 87 U/L (46-116); Anion Gap 10 (5-15); BUN/Creatinine Ratio 11.5 (10.0-20.0); Bilirubin, Total 0.9 mg/dL (0.2-1.0); Blood Urea Nitrogen 19 mg/dL (9-23); Calcium 9.9 mg/dL (8.7-10.4); Carbon Dioxide 27 mmol/L (20-31); Magnesium 1.8 mg/dL (1.6-2.6); Potassium 4.2 mmol/L (3.5-5.1); Total Protein 6.4 g/dL (5.7-8.2)
[2024-11-10 08:46] LABS: Chloride 93 mmol/L (98-107); Sodium 130 mmol/L (136-145)
[2024-11-10 08:48] LABS: Glucose 593 mg/dL (74-106)
[2024-11-10 09:12] LABS: Urine Protein, UAD 1+ (Negative)
--- NOTE | 2024-11-10 09:32 | DVH ---
Bilateral lower extremity venous duplex Clinical History: R/o dvt Comparison: None Technique: Duplex Doppler evaluation of the deep venous systems of both lower extremities from the common femora l veins to the popliteal veins including color Doppler and spectral/pulsed waveform analysis was perf ormed. Findings: RIGHT SIDE: The common femoral vein demonstrates appropriate compressibility and waveform variability. There is compressibility/patency of the great saphenous vein at the proximal thigh. The femoral vein demonstrates appropriate compressibility and waveform variability. The deep femoral vein demonstrates appropriate compressibility and waveform variability. The popliteal vein demonstrates appropriate compressibility and waveform variability. There is normal compressibility at the tibioperoneal trunk. LEFT SIDE: The common femoral vein demonstrates appropriate compressibility and waveform variability. There is compressibility/patency of the great saphenous vein at the proximal thigh. The femoral vein demonstrates appropriate compressibility and waveform variability. The deep femoral vein demonstrates appropriate compressibility and waveform variability. The popliteal vein demonstrates appropriate compressibility and waveform variability. There is normal compressibility at the tibioperoneal trunk. Impression: No right or left femoropopliteal venous thrombosis.
[2024-11-10] MEDS: INSULIN LISPRO (HUMAN) 100 UNITS/ML ML SC ONE (09:59)
[2024-11-10] MEDS: SODIUM CHLORIDE 0.9% 1,000 ML IV ONE (10:00)
[2024-11-10 10:14] VITALS: PULSE 84; RESP 20; O2SAT 97
[2024-11-10 11:36] VITALS: BP 128/84; PULSE 82; RESP 16; TEMP 97.9; O2SAT 98
== END 2024-11-10 11:38 | disposition home or self-care (01) ==
LOC: ER 07:23
DX: E11.65 Type 2 diabetes mellitus with hyperglycemia (principal); R25.2 Cramp and spasm; E78.5 Hyperlipidemia, unspecified; I10 Essential (primary) hypertension; F10.90 Alcohol use, unspecified, uncomplicated; Z85.9 Personal history of malignant neoplasm, unspecified; Z79.899 Other long term (current) drug therapy; Z79.52 Long term (current) use of systemic steroids; Y90.9 Presence of alcohol in blood, level not specified
CPT/HCPCS: 36415; 80053; 81001; 82947; 83735; 85025; 93970; 96360; 96372; 99285; J1815; J7030; 82962

== ENCOUNTER 2024-12-20 09:26 | Inpatient (IN) | payer MEDICAID ==
[~2024-12-20] VITALS: Ht 172.7 cm; Wt 119.1 kg
--- NOTE | 2024-12-20 10:01 | DVH ---
CHEST RADIOGRAPH Indication: COUGH Technique: Single frontal view of the chest was obtained Comparison: XY CHEST TWO VIEWS ROUTINE on DOS: 10/07/24, XY CHEST TWO VIEWS ROUTINE on DOS: 03/05/24, XY CHEST TWO VIEWS ROUTINE on DOS: 06/28/23, XY CHEST TWO VIEWS ROUTINE on DOS: 04/09/23, XY CHEST TWO VIEWS ROUTINE on DOS: 04/03/23 FINDINGS: The cardiac silhouette is enlarged. The lungs demonstrate perihilar airspace opacities. The pulmonary vasculature is prominent. There is no pleural effusion. There is no pneumothorax. IMPRESSION: Cardiomegaly with pulmonary vascular congestion and bilateral perihilar airspace opacities.
--- NOTE | 2024-12-20 10:43 | ED.PDOC ---
SOB-HPI HPI Comments 59 year old male presents to the ED with a chief complaint of cough onset 5 days. Patient has been experiencing non productive cough for the past 5 days, noticed it worsens when he is laying down. For the past few days patient noticed a rash on face spreading down to neck. PMHx cancer, DM, HLD, HTN. Denies fever, chills, shortness of breath, chest pain, nausea, vomiting, diarrhea, hematemesis, dysuria, hematuria, congestion, sore throat. No other symptoms or worsening symptoms present at this time. Chief Complaint: Cough Time Seen by MD: 10:35 Primary Care Provider: JONAH Reviewed notes: Medications, Allergies Information Source: Patient Mode of Arrival: Ambulatory Severity: Moderate Timing: Days Duration: Since onset Context: At Rest PE Risk Factors: None Prehospital treatment: None Modifying Factors: Nothing Associated Signs and Symptoms: Cough If cough with SOB: Non-Productive Past Medical History PAST MEDICAL HISTORY: Cancer, DM, High Lipids, HTN Surgical History: Denies all surgeries Family History Family History: Reviewed,noncontributory to illness Social History Smoker: Non-Smoker Alcohol: Rarely Drugs: Denies Drug Use Lives In: Home Constitutional: denies: chills, diaphoresis, fatigue, fever, malaise, sweats, weakness, others EENTM: denies: blurred vision, double vision, ear bleeding, ear discharge, ear drainage, ear pain, ear ringing, eye pain, eye redness, hearing loss, mouth pain, mouth swelling, nasal discharge, nose bleeding, nose congestion, nose pain, photophobia, tearing, throat pain, throat swelling, voice changes, others Respiratory: reports: cough; denies: hemoptysis, orthopnea, SOB at rest, shortness of breath, SOB with excertion, stridor, wheezing, others Cardiovascular: denies: chest pain, dizzy spells, diaphoresis, Dyspnea on exertion, edema, irregular heart beat, left arm pain, lightheadedness, palpitations, PND, syncope, others Gastrointestinal: denies: abdomen distended, abdominal pain, blood streaked bowels, constipated, diarrhea, dysphagia, difficulty swallowing, hematemesis, melena, nausea, poor appetite, poor fluid intake, rectal bleeding, rectal pain, vomiting, others Genitourinary: denies: burning, dysuria, flank pain, frequency, hematuria, incontinence, penile discharge, penile sore, pain, testicle pain, testicle swelling, urgency, others Neurological: denies: dizziness, fainting, headache, left sided numbness, left sided weakness, numbness, paresthesia, pre-existing deficit, right sided numbnes s, right sided weakness, seizure, speech problems, tingling, tremors, weakness, others Musculoskeletal: denies: back pain, gout, joint pain, joint swelling, muscle pain, muscle stiffness, neck pain, others Integumetry: reports: rash; denies: bruises, change in color, change in hair/nails, dryness, laceration, lesions, lumps, wounds, others Allergic/Immunocompromised: denies: Difficulty Healing, Frequent Infections, Hives, Itching, others Hematologic/Lymphatic: denies: anemia, blood clots, easy bleeding, easy bruising, swollen glands, others Endocrine: denies: excessive hunger, excessive sweating, excessive thirst, excessive urination, flushing, intolerance to cold, intolerance to heat, unexplained weight gain, unexplained weight loss, others Psychiatric: denies: anxiety, bipolar disorder, depression, hopeless, panic disorder, schizophrenia, sleepless, suicidal, others All Other Systems: Reviewed and Negative Physical Exam General Appearance: Moderate Distress, Obese HEENT: Normal ENT Inspection, PERRL/EOMI, Pharynx Normal, TMs Normal Neck: Full Range of Motion, Non-Tender, Normal, Normal Inspection Respiratory: Chest Non-Tender, Crackles, Decreased Breath Sounds, Expiration, Inspiration, Lungs Clear, No Accessory Muscle Use, No Respiratory Distress, Wheezing Cardiovascular: No Edema, No JVD, No Murmur, No Gallop, Normal Peripheral Pulses, Regular Rate/Rhythm Breast Exam: Deferred Gastrointestinal: No Organomegaly, Non Tender, No Pulsatile Mass, Normal Bowel Sounds, Soft Genitalia: Deferred Pelvic: Deferred Rectal: Deferred Extremities: No calf tenderness, Normal capillary refill, Normal inspection, Normal range of motion, Non-tender, No pedal edema Musculoskeletal : Apperance: Normal Neurologic: Alert, pourer off II-XII nml as Tested, No Motor Deficits, Normal Affect, Normal Mood, No Sensory Deficits Cerebellar Function: Normal Reflexes: Normal Skin: Dry, Normal Color, Warm Peripheral Pulses: 1+ carotid (R), 1+ carotid (L) Lymphatic: No Adenopathy EKG EKG : Pulse Rate (adult): 76 [place]: LAD Cardiac Rhythm: NSR Was a procedure done? Was a procedure done?: No Differential Dx Differential Diagnosis: Anxiety, Asthma, Bronchitis, CHF, COPD, Dysrhythmia, Hyponatremia, Pneumonia X-Ray, Labs, Meds, VS Vital Signs Date Time Temp Pulse Resp B/P (MAP) Pulse Ox O2 Delivery O2 Flow Rate FiO2 12/20/24 12:55 Room Air* 0 21 12/20/24 12:40 99.4 76 15 148/79 (102) 97 99.4 12/20/24 11:15 22 96 Room Air* 0 21 12/20/24 11:11 96 Room Air* 0 21 12/20/24 11:08 126/81 12/20/24 10:16 82 18 96 Room Air 12/20/24 10:16 98.5 82 18 138/83 (101) 96 98.5 12/20/24 10:09 76 12/20/24 09:28 98.1 86 20 117/84 95 98.1 Lab Test 12/20/24 11:02 Range/Units White Blood Count 8.4 4.4-10.8 10^3/uL Red Blood Count 4.97 4.5-5.90 10^6/uL Hemoglobin 14.5 13.5-17.5 g/dL Hematocrit 41.8 41.0-53.0 % Mean Corpuscular Volume 84.1 80.0-100.0 fL Mean Corpuscular Hemoglobin 29.1 28.0-32.0 pg Mean Corpuscular Hemoglobin Concent 34.6 32.0-36.0 g/dL Red Cell Distribution Width 15.1 H 11.8-14.3 % Platelet Count 231 140-450 10^3/uL Mean Platelet Volume 7.8 6.9-10.8 fL Neutrophils (%) (Auto) 70.5 37.0-80.0 % Lymphocytes (%) (Auto) 12.9 10.0-50.0 % Monocytes (%) (Auto) 13.4 H 0.0-12.0 % Eosinophils (%) (Auto) 2.3 0.0-7.0 % Basophils (%) (Auto) 0.9 0.0-2.0 % Neutrophils # (Auto) 5.9 1.6-8.6 10 ^3/uL Lymphocytes # (Auto) 1.1 0.4-5.4 10 ^3/uL Monocytes # (Auto) 1.1 0-1.3 10 ^3/uL Eosinophils # (Auto) 0.2 0-0.8 10 ^3/uL Basophils # (Auto) 0.1 0-0.2 10 ^3/uL Nucleated Red Blood Cells 0.1 % Sodium Level 135 L 136-145 mmol/L Potassium Level 3.9 3.5-5.1 mmol/L Chloride Level 97 L 98-107 mmol/L Carbon Dioxide Level 28 20-31 mmol/L Anion Gap 10 5-15 Blood Urea Nitrogen 15 9-23 mg/dL Creatinine 1.45 H 0.700-1.30 mg/dL Glomerular Filtration Rate Calc 55 >90 mL/min BUN/Creatinine Ratio 10.3 10.0-20.0 Serum Glucose 265 H 74-106 mg/dL Calcium Level 9.0 8.7-10.4 mg/dL Magnesium Level 1.6 1.6-2.6 mg/dL Total Bilirubin 1.3 H 0.2-1.0 mg/dL Aspartate Amino Transferase (AST) 47 H 13-40 U/L Alanine Aminotransferase (ALT) 25 7-40 U/L Alkaline Phosphatase 52 46-116 U/L Troponin I High Sensitivity 9839 *H </=54 ng/L B-Type Natriuretic Peptide 92.51 0-100 pg/mL Total Protein 7.0 5.7-8.2 g/dL Albumin 4.3 3.2-4.8 g/dL Current Medications Medications (Trade) Dose Ordered Sig/Micaela Route Start Time Stop Time Status Last Admin Ceftriaxone Sodium 50 ml @ 100 mls/hr ONCE ONCE IV 12/20/24 10:45 12/20/24 11:14 DC 12/20/24 11:04 Albuterol (Ventolin Medneb) 5 mg ONCE ONCE NEB 12/20/24 10:45 12/20/24 10:46 DC 12/20/24 11:14 Ipratropium Lena (Atrovent Medneb) 0.5 mg ONCE ONCE NEB 12/20/24 10:45 12/20/24 10:46 DC 12/20/24 11:14 Furosemide (Lasix Tablet) 20 mg ONCE ONCE PO 12/20/24 10:45 12/20/24 10:46 DC 12/20/24 11:08 Sodium Chloride 1,000 ml @ 150 mls/hr Q6H40M ONCE IV 12/20/24 10:45 12/20/24 17:24 12/20/24 11:08 [place] [id number] Ph: [phone] DIAGNOSTIC IMAGING Diagnostic Imaging Report : [id number] Signed PATIENT: MEL LUKE ACCT: [id number] UNIT: [id number] : 1965 LOC: ER ROOM / BED: / AGE / SEX: 59 / M ADM STATUS: REG ER SERVICE 2 ORDERING PHYSICIAN: SENA BLUE MD PROCEDURE(s): CXR2 - CHEST TWO VIEWS ROUTINE REASON: COUGH ORDER NUMBER(s): [id number], ACCESSION NUMBER(s): [id number] CHEST RADIOGRAPH Indication: COUGH Technique: Single frontal view of the chest was obtained Comparison: XY CHEST TWO VIEWS ROUTINE on DOS: 10/07/24, XY CHEST TWO VIEWS ROUTINE on DOS: 03/05/24, XY CHEST TWO VIEWS ROUTINE on DOS: 06/28/23, XY CHEST TWO VIEWS ROUTINE on DOS: 04/09/23, XY CHEST TWO VIEWS ROUTINE on DOS: 04/03/23 FINDINGS: The cardiac silhouette is enlarged. The lungs demonstrate perihilar airspace opacities. The pulmonary vasculature is prominent. There is no pleural effusion. There is no pneumothorax. IMPRESSION: Cardiomegaly with pulmonary vascular congestion and bilateral perihilar airspace opacities. ATED BY: FRANSISCA VALADEZ MD DICTATED DATE/TIME: 12/20/24 100 SIGNED BY: FRANSISCA VALADEZ MD SIGNED DATE/TIME: 12/20/241000 CC: X-Ray, Labs, Meds, VS Comment Course in the [employer] eventful patient came in complaining of very painful cough and also rash on the face and neck for the past five days and not feel good at all she is not short of breath at this time he has a history of hypertension asthma and diabetes Chest x-ray shows cardiomegaly with perihilar opacities and pulmonary vascular congestion CBC is normal CMP is normal GFR at 55 with a blood sugar of 265 Magnesium 1.6 Troponin 9839 BNP 92.5 Patient will be admitted to the hospital Cardiology will be consulted Time of 1ST Reevaluation: 11:05 Reevaluation 1ST: Unchanged Patient Education/Counseling: Diagnosis, Treatment, Prognosis Family Education/Counseling: No Family Present SEPSIS Sepsis Screen Date sepsis recognized/suspect: Dec 20, 2024 Time Sepsis recognized/suspect: 927 Recent Procedure: No On Antibiotic Therapy: No Respiratory Rate >20: No Heart Rate >90: Yes Temp<36 C (96.8 F) or >38.3 C: No SBP <90 or MAP <65 mmHG: No New Acute Mental Status Change: No Is the patient on CPAP, BIPAP,: No Physician Orders Chest Two Views Routine (12/20/24 09:33) Heplock Iv (12/20/24 10:41) Regulatory Submissions Associate (12/20/24 10:41) Oxygen (12/20/24 10:41) Pulse Oximetry (12/20/24 10:41) Sodium Chloride 0.9% (12/20/24 10:45) Electrocardigram (12/20/24 10:41) Vital Signs Date Time Temp Pulse Resp B/P (MAP) Pulse Ox O2 Delivery O2 Flow Rate FiO2 12/20/24 12:55 Room Air* 0 21 12/20/24 12:40 99.4 76 15 148/79 (102) 97 99.4 12/20/24 11:15 22 96 Room Air* 0 21 12/20/24 11:11 96 Room Air* 0 21 12/20/24 11:08 126/81 12/20/24 10:16 82 18 96 Room Air 12/20/24 10:16 98.5 82 18 138/83 (101) 96 98.5 12/20/24 10:09 76 12/20/24 09:28 98.1 86 20 117/84 95 98.1 Laboratory Tests Test 12/20/24 11:02 White Blood Count 8.4 10^3/uL (4.4-10.8) Medications Medications Dose Ordered Sig/Micaela Route Start Time Stop Time Status Last Admin Dose Admin Albuterol 5 mg ONCE ONCE NEB 12/20/24 10:45 12/20/24 10:46 DC 9/1/25 11:14 Ceftriaxone Sodium 50 ml @ 100 mls/hr ONCE ONCE IV 12/20/24 10:45 12/20/24 11:14 DC 12/20/24 11:04 Furosemide 20 mg ONCE ONCE PO 12/20/24 10:45 12/20/24 10:46 DC 12/20/24 11:08 Ipratropium Lena 0.5 mg ONCE ONCE NEB 12/20/24 10:45 12/20/24 10:46 DC 12/20/24 11:14 Sodium Chloride 1,000 ml @ 150 mls/hr Q6H40M ONCE IV 12/20/24 10:45 12/20/24 17:24 12/20/24 11:08 Departure 1 Departure Time of Disposition: 13:21 Impression: Primary Impression: Diabetic nephropathy associated with type 2 diabetes mellitus Additional Impressions: Hypertension CHF (congestive heart failure) Opacities of both lungs present on chest x-ray Acute coronary syndrome with high troponin Disposition: ADMITTED INPATIENT Condition: Guarded Critical Care Note Critical Care Time?: No Stability Stability form required: Yes Unstable for transfer: ICU, CCU, PCU, RAFITA (Intensive VS monitoring), Requires medication (Requires Med for stabilization) Heart Score Heart Score: Heart Score Response (Comments) Value History Moderate Suspicious 1 EKG Repolarization Disturb 1 Age 45-64 1 Risk Factors >3 or Hx ASHD 2 Troponin >3 x's Normal limit 2 Total 7 I personally scribed for SENA BLUE MD ([email or web address]) on 12/20/24 at 10:43. Electronically submitted by Lilibeth Ferrera ([email or web address]). I personally scribed for SENA BLUE MD ([email or web address]) on 12/20/24 at 10:44. Electronically submitted by Lilibeth Ferrera ([email or web address]). SENA BLUE MD Dec 20, 2024 10:43
[2024-12-20] MEDS: FUROSEMIDE 20 MG TAB PO ONE (11:08)
[2024-12-20] MEDS: SODIUM CHLORIDE 0.9% 1,000 ML IV ONE (11:08)
[2024-12-20] MEDS: ALBUTEROL SULF 2.5 MG/0.5ML(0.5%) NEB SOLN NEB ONE (11:14)
[2024-12-20] MEDS: IPRATROPIUM BROM 0.5 MG/2.5ML INH SOL NEB ONE (11:14)
[2024-12-20 11:26] LABS: Hematocrit 41.8 % (41.0-53.0); Hemoglobin 14.5 g/dL (13.5-17.5); Mean Corpuscular Hemoglobin 29.1 pg (28.0-32.0); Mean Corpuscular Volume 84.1 fL (80.0-100.0); Nucleated Red Blood Cells % 0.1 %
[2024-12-20 11:46] LABS: Alanine Aminotransferase 25 U/L (7-40); Albumin 4.3 g/dL (3.2-4.8); Alkaline Phosphatase 52 U/L (46-116); Anion Gap 10 (5-15); BUN/Creatinine Ratio 10.3 (10.0-20.0); Blood Urea Nitrogen 15 mg/dL (9-23); Calcium 9.0 mg/dL (8.7-10.4); Carbon Dioxide 28 mmol/L (20-31); Magnesium 1.6 mg/dL (1.6-2.6); Potassium 3.9 mmol/L (3.5-5.1); Total Protein 7.0 g/dL (5.7-8.2)
[2024-12-20 11:57] LABS: Chloride 97 mmol/L (98-107); Sodium 135 mmol/L (136-145)
[2024-12-20 11:58] LABS: Bilirubin, Total 1.3 mg/dL (0.2-1.0); Glucose 265 mg/dL (74-106)
[2024-12-20] MEDS ORDERED: DEXTROSE (50%) 50ML SYRG IV PRN (16:00)
[2024-12-20] MEDS ORDERED: NITROGLYCERIN 0.4 MG SL TAB SL PRN (16:00)
[2024-12-20] MEDS ORDERED: MORPHINE SULFATE INJ 2 MG/ml SYRG IV PRN (16:00)
[2024-12-20] MEDS ORDERED: ONDANSETRON HCL 4 MG/2 ML VIAL IV PRN (16:00)
[2024-12-20] MEDS ORDERED: ACETAMINOPHEN 325 MG TAB PO PRN (16:00)
--- NOTE | 2024-12-20 16:10 | DVHHP2 ---
History of Present Illness Reason for Visit: Chronic cough History of Present Illness 59-year-old male presented to the ED with chief complaint of cough x5 days. Patient states cough is nonproductive and worsens when he is laying down. Patient also noticed a rash that started on his face went down to the neck. Patient has primary medical history of cancer, diabetes mellitus, hyperlipidemia, hypertension. Patient denies fever, chills, shortness of br eath, diarrhea, chest pain, nausea, vomiting, and hematemesis, dysuria, hematuria congestion or sore throat. Patient states he has been seen by crop roller in the past and he was not told that he needed to return, just a 1 time visit. Patient states he has never had any chest pain. Patient is currently sinus rhythm 70s to 80s. Patient's troponins so far have been 9839, 9613, pending 3rd troponin, BNP noted to be 92. Glucose noted to be 265. No recent hemoglobin A1c., chest x-ray shows cardiomegaly with pulmonary vascular congestion and bilateral perihilar airspace opacities, patient was started on antibiotics . Patient will be admitted for monitoring/treatment/management and cardiology consult. Past Medical History Cancer, DM, High Lipids, HTN Past Surgical History Right kidney removed 8 years ago, implant to spine, right knee procedure Family History Denies Smoke: No ALCOHOL: none Drugs: None Lives: with Family Review of Systems Constitutional: No: Fever, Chills, Sweats, Weakness, Malaise, Other Eyes: No: Pain, Vision change, Conjunctivae inflammation, Eyelid inflammation, Other, Redness ENT: No: Ear pain, Ear discharge, Nose pain, Nose discharge, Nose congestion, Mouth pain, Mouth swelling, Throat pain, Throat swelling, Other Respiratory: Cough; No: Dry, Shortness of breath, SOB with excertion, Wheezing, Hemoptysis, Pleuritic Pain, Sputum, Wheezing, Other Cardiovascular: No: Chest Pain, Palpitations, Orthopnea, Paroxysmal Noc. Dyspnea, Edema, Lt Headedness, Other Gastrointestinal: No: Nausea, Vomiting, Abdominal Pain, Diarrhea, Constipation, Melena, Hematochezia, Other Genitourinary: No Dysuria, No Frequency, No Incontinence, No Hematuria, No Retention, No Other Musculoskeletal: No: other, neck pain, shoulder pain, arm pain, back pain, hand pain, leg pain, foot pain Skin: No: Rash, Lesions, Jaundice, Bruising, Other Neurological: No: Weakness, Numbness, Incoordination, Change in speech, Confusion, Seizures, Other Allergies: Coded Allergies: NO KNOWN ALLERGIES (Unverified , 09/27/20) Medications Current Medications Medications Dose Ordered Sig/Micaela Route Start Time Stop Time Status Last Admin Dose Admin Ondansetron HCl 4 mg Q4HP PRN IV 12/20/24 16:00 UNV Acetaminophen 650 mg Q6HP PRN PO 12/20/24 16:00 UNV Nitroglycerin 0.4 mg Q5MINP PRN SL 12/20/24 16:00 UNV Morphine Sulfate 2 mg Q30M PRN IV 12/20/24 16:00 UNV Diagnostic Test (Pha) 1 strip ACHS 12/20/24 17:00 UNV Insulin Human Regular HS SC 12/20/24 22:00 UNV Insulin Human Regular AC SC 12/20/24 17:00 UNV Dextrose 50 ml UD PRN IV 12/20/24 16:00 UNV Ceftriaxone Sodium 50 ml @ 100 mls/hr DAILY@09 IV 12/21/24 09:00 UNV Amlodipine Besylate 5 mg DAILY PO 12/21/24 10:00 UNV Carvedilol 6.25 mg DAILY PO 12/21/24 10:00 UNV Atorvastatin Calcium 20 mg HS PO 12/20/24 22:00 UNV Furosemide 20 mg DAILY PO 12/21/24 10:00 UNV Exam Vital Signs Vital Signs Date Time Temp Pulse Resp B/P (MAP) Pulse Ox O2 Delivery O2 Flow Rate FiO2 12/20/24 15:00 76 29 146/92 (110) 96 12/20/24 12:55 Room Air* 0 21 12/20/24 12:40 99.4 99.4 General Appearance: Alert, Oriented X3, Cooperative, No acute distress HEENT: Atraumatic, PERRLA, EOMI, Mucous membr. moist/pink Respiratory: Clear to auscultation (Diminished clear breath sounds), Normal air movement Cardiovascular: Regular rate, Normal S1, Normal S2, No murmurs Abdominal: Normal bowel sounds, Soft, No tenderness, No hepatospenomegaly, No masses Extremities: No clubbing, No cyanosis, No edema, Normal pulses, No tenderness/swelling Skin: No rashes, No breakdown, No significant lesion Neuro: Normal gait, Normal speech, Strength at 5/5 X4 ext, Normal tone, Sensation intact, Cranial nerves 3-12 NL, Reflexes 2+ Psych/Mental Status: Mental status NL, Mood NL Labs/Xrays Reviewed with patient Labs Test 12/20/24 14:33 12/20/24 11:02 Range/Units Troponin I High Sensitivity 9613 *H </=54 ng/L White Blood Count 8.4 4.4-10.8 10^3/uL Red Blood Count 4.97 4.5-5.90 10^6/uL Hemoglobin 14.5 13.5-17.5 g/dL Hematocrit 41.8 41.0-53.0 % Mean Corpuscular Volume 84.1 80.0-100.0 fL Mean Corpuscular Hemoglobin 29.1 28.0-32.0 pg Mean Corpuscular Hemoglobin Concent 34.6 32.0-36.0 g/dL Red Cell Distribution Width 15.1 H 11.8-14.3 % Platelet Count 231 140-450 10^3/uL Mean Platelet Volume 7.8 6.9-10.8 fL Neutrophils (%) (Auto) 70.5 37.0-80.0 % Lymphocytes (%) (Auto) 12.9 10.0-50.0 % Monocytes (%) (Auto) 13.4 H 0.0-12.0 % Eosinophils (%) (Auto) 2.3 0.0-7.0 % Basophils (%) (Auto) 0.9 0.0-2.0 % Neutrophils # (Auto) 5.9 1.6-8.6 10 ^3/uL Lymphocytes # (Auto) 1.1 0.4-5.4 10 ^3/uL Monocytes # (Auto) 1.1 0-1.3 10 ^3/uL Eosinophils # (Auto) 0.2 0-0.8 10 ^3/uL Basophils # (Auto) 0.1 0-0.2 10 ^3/uL Nucleated Red Blood Cells 0.1 % Sodium Level 135 L 136-145 mmol/L Potassium Level 3.9 3.5-5.1 mmol/L Chloride Level 97 L 98-107 mmol/L Carbon Dioxide Level 28 20-31 mmol/L Anion Gap 10 5-15 Blood Urea Nitrogen 15 9-23 mg/dL Creatinine 1.45 H 0.700-1.30 mg/dL Glomerular Filtration Rate Calc 55 >90 mL/min BUN/Creatinine Ratio 10.3 10.0-20.0 Serum Glucose 265 H 74-106 mg/dL Calcium Level 9.0 8.7-10.4 mg/dL Magnesium Level 1.6 1.6-2.6 mg/dL Total Bilirubin 1.3 H 0.2-1.0 mg/dL Aspartate Amino Transferase (AST) 47 H 13-40 U/L Alanine Aminotransferase (ALT) 25 7-40 U/L Alkaline Phosphatase 52 46-116 U/L B-Type Natriuretic Peptide 92.51 0-100 pg/mL Total Protein 7.0 5.7-8.2 g/dL Albumin 4.3 3.2-4.8 g/dL SEPSIS Sepsis Screen Date sepsis recognized/suspect: Dec 20, 2024 Time Sepsis recognized/suspect: 1257 Recent Procedure: No On Antibiotic Therapy: No Respiratory Rate >20: No Heart Rate >90: No Temp<36 C (96.8 F) or >38.3 C: No SBP <90 or MAP <65 mmHG: No New Acute Mental Status Change: No Is the patient on CPAP, BIPAP,: No Physician Orders Chest Two Views Routine (12/20/24 09:33) Heplock Iv (12/20/24 10:41) Stock Patch Sawyer (12/20/24 10:41) Oxygen (12/20/24 10:41) Pulse Oximetry (12/20/24 10:41) Sodium Chloride 0.9% (12/20/24 10:45) Electrocardigram (12/20/24 10:41) Troponin-I Hs (12/20/24 15:23) * Cardiology Consult (12/20/24 15:46) Admit (12/20/24 15:47) Allergies (12/20/24 15:47) Code Status (12/20/24 15:47) Ondansetron Hcl (Zofran) (12/20/24 16:00) Complete Blood Count (12/21/24 04:00) Comprehensive Metabolic Panel (12/21/24 04:00) Cardiac Diet-2gna,Lofat,Lochol (12/20/24 Dinner) Condition: Serious (12/20/24 15:47) Acetaminophen Tablet (Tylenol Tablet) (12/20/24 16:00) BRP (12/20/24 15:47) Nitroglycerin Sublingual (Ntrostat Subli (12/20/24 16:00) Morphine Sulfate Injection (12/20/24 16:00) Stat Ekg For Chest Pain (12/20/24 15:47) Notify Md Of Changes From Base (12/20/24 15:47) Local Superintendent For 24 Hours (12/20/24 15:47) Emergency Dysrhythmia Protocol (12/20/24 15:47) Rhythm Strips Once Every Shift (12/20/24 15:47) Oxygen By Nasal Cannula (12/20/24 15:47) Glucose Blood (Accu-Chek Comfort Curve T (12/20/24 17:00) Insulin R (Human) (Insulin R) (12/20/24 22:00) Insulin R (Human) (Insulin R) (12/20/24 17:00) Dextrose 50% Syringe (12/20/24 16:00) Ceftriaxone 1gm/50ml D5w (Rocephin) (12/21/24 09:00) Amlodipine Tablet (Norvasc Tablet) (12/21/24 10:00) Carvedilol Tablet (Coreg Tablet) (12/21/24 10:00) Atorvastatin (Lipitor) (12/20/24 22:00) Furosemide Tablet (Lasix Tablet) (12/21/24 10:00) Ipratropium Medneb (Atrovent Medneb) (12/20/24 18:00) Albuterol Medneb (Ventolin Medneb) (12/20/24 18:00) Budesonide (Inhalation) (Pulmicort) (12/20/24 22:00) Vital Signs Date Time Temp Pulse Resp B/P (MAP) Pulse Ox O2 Delivery O2 Flow Rate FiO2 12/20/24 15:00 76 29 146/92 (110) 96 12/20/24 14:00 74 29 137/83 (101) 98 12/20/24 13:24 76 12/20/24 12:55 Room Air* 0 21 12/20/24 12:40 99.4 76 15 148/79 (102) 97 99.4 12/20/24 11:15 22 96 Room Air* 0 21 12/20/24 11:11 96 Room Air* 0 21 12/20/24 11:08 126/81 12/20/24 10:16 82 18 96 Room Air 12/20/24 10:16 98.5 82 18 138/83 (101) 96 98.5 12/20/24 10:09 76 12/20/24 09:28 98.1 86 20 117/84 95 98.1 Laboratory Tests Test 12/20/24 11:02 White Blood Count 8.4 10^3/uL (4.4-10.8) Medications Medications Dose Ordered Sig/Micaela Route Start Time Stop Time Status Last Admin Dose Admin Albuterol 5 mg ONCE ONCE NEB 12/20/24 10:45 12/20/24 10:46 DC 12/20/24 11:14 5 MG Ceftriaxone Sodium 50 ml @ 100 mls/hr ONCE ONCE IV 12/20/24 10:45 12/20/24 11:14 DC 12/20/24 11:04 100 MLS/HR Furosemide 20 mg ONCE ONCE PO 12/20/24 10:45 12/20/24 10:46 DC 12/20/24 11:08 20 MG Ipratropium [place] 0.5 mg ONCE ONCE NEB 12/20/24 10:45 12/20/24 10:46 DC 12/20/24 11:14 0.5 MG Sodium Chloride 1,000 ml @ 150 mls/hr Q6H40M ONCE IV 12/20/24 10:45 12/20/24 17:24 12/20/24 11:08 150 MLS/HR Assessment/Plan Assessment/Plan ACS with elevated troponin Last troponin waiting on trending, 2nd troponin slightly trended down Cardiology consulted Admit to telemetry ACS protocol EKG sinus rhythm (per report)- EKG was not available for me to review-ER MD reviewed Diabetic nephropathy/type 2 diabetes mellitus Insulin sliding scale moderate a.c. HS Accu-Cheks CHF versus pneumonia or other viral illness Opacities of both lungs on x-ray Lasix 20 mg Chronic hypertension Continue home medications PPX/diet Consistent carb diet Protonix VTE prophylaxis not indicated Plan discussed with: Patient My Orders Orders - SHAYY MEEK Procedure Category Date Status Time * Cardiology Consult CONS 12/20/24 Transmitted 15:46 Admit ADMIT 12/20/24 Transmitted 15:47 Allergies [facility] 12/20/24 In Process 15:47 Code Status CODE 12/20/24 Transmitted 15:[address] [facility] 12/20/24 Logged (Zofran) 16:00 Complete Blood Count LAB 12/21/24 Verified 04:00 Comprehensive LAB 12/21/24 Verified Metabolic Panel 04:00 Cardiac DIET 12/20/24 Transmitted Diet-2gna,Lofat,Lochol Dinner Condition: Serious JOSEPH 12/20/24 In Process 15:[address] [facility] 12/20/24 Logged (Tylenol Tablet) 16:00 BRP [facility] 12/20/24 In Process 15:[address] [facility] 12/20/24 Logged Sublingual (Ntrostat 16:[address] [facility] 12/20/24 Logged Injection 16:00 Stat Ekg For Chest [facility] 12/20/24 In Process Pain 15:47 Notify Of Changes [facility] 12/20/24 In Process From Base 15:47 Local Superintendent For [facility] 12/20/24 In Process 24 Hours 15:47 Emergency Dysrhythmia [facility] 12/20/24 In Process Protocol 15:47 Rhythm Strips Once [facility] 12/20/24 In Process Every Shift 15:47 Oxygen By Nasal RT 12/20/24 Transmitted Cannula 15:[address] [facility] 12/20/24 Logged (Accu-Chek Comfort 17:00 Insulin R (Human) [facility] 12/20/24 Logged (Insulin R) 22:00 Insulin R (Human) [facility] 12/20/24 Logged (Insulin R) 17:00 Dextrose 50% Syringe [facility] 12/20/24 Logged 16:00 Ceftriaxone 1gm/50ml [facility] 12/21/24 Logged D5w (Rocephin) 09:[address] [facility] 12/21/24 Logged (Norvasc Tablet) 10:[address] [facility] 12/21/24 Logged (Coreg Tablet) 10:00 Atorvastatin (Lipitor) [facility] 12/20/24 Logged 22:[address] [facility] 12/21/24 Logged (Lasix Tablet) 10:00 Ipratropium Medneb PHA 12/20/24 Verified (Atrovent Medneb) 18:00 Albuterol Medneb PHA 12/20/24 Verified (Ventolin Medneb) 18:00 Budesonide PHA 12/20/24 Verified (Inhalation) 22:00 Date of Service: Dec 20, 2024 Billing Provider: SHAYY MEEK Common Visit Codes: [id number] INP/OBS CARE (HIGH) SHAYY MEEK Dec 20, 2024 16:10
[2024-12-20 16:25] VITALS: BP 146/92; PULSE 76; RESP 26; TEMP 99.4; O2SAT 96
[2024-12-20] MEDS: PANTOPRAZOLE 40 MG TAB PO SCH (16:39)
[2024-12-20] MEDS: InsuLIN REG 1unit/0.01ml Soln (100units/ml) SC SCH (17:06)
[2024-12-20] MEDS: ACCU-CHEK COMFORT CURVE STRIP VI SCH (17:06)
[2024-12-20 18:00] VITALS: BP 138/84
[2024-12-20] MEDS: IPRATROPIUM BROM 0.5 MG/2.5ML INH SOL NEB SCH (18:05)
[2024-12-20] MEDS: ALBUTEROL SULF 2.5 MG/0.5ML(0.5%) NEB SOLN NEB SCH (18:05)
[2024-12-20 18:08] VITALS: PULSE 88; RESP 16; O2SAT 97
[2024-12-20 18:18] VITALS: PULSE 91; RESP 18; O2SAT 100
[2024-12-20 18:59] LABS: Urine Protein, UAD Negative (Negative)
[2024-12-20] MEDS ORDERED: ATORVASTATIN 20 MG TAB PO SCH (22:00)
[2024-12-20] MEDS ORDERED: InsuLIN REG 1unit/0.01ml Soln (100units/ml) SC SCH (22:00)
[2024-12-20] MEDS ORDERED: BUDESONIDE (INHALATION) 0.5 MG/2 ML NEB NEB SCH (22:00)
[2024-12-21] MEDS ORDERED: CARVEDILOL 3.125 MG TAB PO SCH (10:00)
[2024-12-21] MEDS ORDERED: FUROSEMIDE 20 MG TAB PO SCH (10:00)
--- NOTE | 2024-12-21 10:31 | ECG ---
[facility] Test Date: 2024-12-20 Test Time: 12:09:12 Pat Name: MEL LUKE Department: Room: [address] [place] [address] Gender: M [employer] Education Coordinator: STEPHANI : 1965 Requested By: SENA BLUE Order Number: [id number] Reading MD: Elkin Wright Measurements Intervals [place] Rate: 76 P: 47 W[place]: 167 QRS: -27 QRSD: 105 T: 123 QT: 405 QTc: 456 Interpretive Statements Sinus rhythm Borderline left axis deviation Abnormal R-wave progression, late transition Nonspecific repol abnormality, lateral leads Baseline wander in lead(s) V2 Electronically Signed On 12-23-2024 15:03:51 PDT by Elkin Wright Please click the below link to view image of tracing.
== END 2024-12-20 18:50 | disposition left against medical advice (07) | DRG 139 ==
LOC: ER 09:26 → OVERFLOW 15:47
PROVIDERS: ADMIT Registered Nurse General Practice; ATTEND Registered Nurse General Practice
DX: J18.9 Pneumonia, unspecified organism (principal); I24.9 Acute ischemic heart disease, unspecified; E11.21 Type 2 diabetes mellitus with diabetic nephropathy; B34.9 Viral infection, unspecified; I11.0 Hypertensive heart disease with heart failure; I50.9 Heart failure, unspecified; E78.5 Hyperlipidemia, unspecified; Z53.29 Procedure and treatment not carried out because of patient's decision for other reasons; Z85.9 Personal history of malignant neoplasm, unspecified; Z90.5 Acquired absence of kidney; Z79.4 Long term (current) use of insulin
CPT/HCPCS: 36415; 71046; 80053; 81001; 82962; 83735; 83880; 84484; 85025; 93005; 94640; 96365; G0378; J1815